=== PATIENT | male | born 1960 | race Caucasian/White ===

== ENCOUNTER 2024-01-28 02:31 | Observation (INO) ==
--- NOTE | 2024-01-28 02:51 | Emergency Department Note ---
Impression & Plan Kidney stone on left side, DEUCE (acute kidney injury) ED Provider Note CHIEF COMPLAINT: Kidney stone HISTORY OF PRESENTING ILLNESS: This 63-year-old male patient presents to the emergency department for evaluation of left-sided flank pain, nausea, vomiting, and shaking since 8:30 pm tonight. The patient has a history of kidney stones and the pain feels the same. However, he thinks he was able to pass the first 2 stones without problems. However, this stone is not passing on its own. He has been taking Flomax and Vicodin at home without improvement of the symptoms. Last took Flomax and Vicodin at 8:45 PM. He rates his discomfort as sharp and 10/10. No fevers. Has been having trouble urinating since the pain started. Denies blood in his urine. Denies testicular pain. Denies any chest pain or SOB. Upon review of the patient's medical records, he was seen in the ER on 12/19/2023 and diagnosed with a 7 x 4 mm kidney stone. The patient had taken Flomax and Vicodin with resolution of the pain from that kidney stone and he thought that he passed the stone, but never found the stone. The patient then followed up with urology on 12/29/2023 and had KUB ordered to evaluate location of the stone. KUB on 01/26/2024 showed a 7 mm left pelvic basin calcification which may represent distal migration of the previous noted left ureteral calculus. REVIEW OF SYSTEMS: See HPI for pertinent positives and pertinent negatives. ALLERGIES: Ibuprofen, sulfa, amoxicillin MEDICATIONS: None PAST MEDICAL HISTORY: Kidney stones. History of vasectomy, T&A, skin cancer surgery. PHYSICAL EXAM: VITALS: Vitals are noted on the nurse's note and reviewed by myself. GENERAL: The patient is pacing the room in pain. However, he is non toxic and non-diaphoretic. SKIN: Capillary refill <2 sec. EYES: PERRLA. EOMI. Conjunctivae without injection, sclerae without icterus. NOSE: Patent without discharge. MOUTH: Mucous membranes moist. Uvula midline. Airway patent. NECK: Supple without nuchal rigidity. HEART: Regular rate and rhythm without murmurs gallops or rubs. LUNGS: Clear to auscultation bilaterally without wheezes, rales or rhonchi. No retractions or accessory muscle use. ABDOMEN: Positive bowel sounds x 4. Normal tympanic percussion. Soft, tender to palpation over the left flank, but no CVA tenderness. No masses or organomegaly. Collins sign negative. No guarding or rebound tenderness. No focal RLQ or LLQ tenderness. MUSCULOSKELETAL: No gross musculoskeletal defects. NEURO: Patient was alert and oriented. No focal neurological deficits. DIFFERENTIAL DIAGNOSIS: Differential diagnosis includes hepatitis, pancreatitis, cholecystitis, cholelithiasis, appendicitis, kidney stone, pyelonephritis, UTI, gastritis, gastroenteritis, mesenteric adenitis, obstruction, constipation, hernia, abdominal abscess, perforation, diverticulitis, IBD, ischemic colitis, abdominal aortic aneurysm, testicular torsion, prostatitis, or others. ED COURSE AND MEDICAL DECISION MAKING: MEDICATIONS GIVEN: 1 L normal saline solution bolus. Morphine 4 mg IV, Zofran 4 mg IV, Dilaudid 0.5 mg IV, and Tylenol 1000 mg IV. INTERPRETATION OF LABS: I interpreted the labs with full lab results as below in the lab section of this note. White blood cell count elevated at 15.94. Hemoglobin normal at 14.8. Platelet count normal at 206. BUN elevated 26 and creatinine elevated at 1.47. Glucose 119. CMP otherwise normal. Lipase normal. Urinalysis with 2+ blood, 1+ protein, 1+ glucose, uric acid crystals, but no evidence for UTI. INTERPRETATION OF IMAGING: Imaging studies were interpreted by myself and read by radiology as per the imaging section of this note. CT scan of the abdomen pelvis without contrast showed increased left perinephritic stranding, hydronephrosis, and diffuse hydroureter to the level of the obstructing 4.4 x 8 mm calculus now with a left ureteral vesicular junction. EXTERNAL RECORDS REVIEWED: I reviewed the patient's previous ER visits, urology visit notes, and previous imaging studies as summarized above. CONSULTATIONS: Mainor Simpson PA-C of urology. On-call hospitalist. MDM SUMMARY: I examined the patient. The patient was first diagnosed with a kidney stone on 12/19/2023 in the ER. The patient felt like he passed the stone because his pain resolved. However, he never found the stone in his urine. The patient then thought that he had another stone when he saw urology towards the end of December. His pain then resolved until last night so he thought he passed that stone as well. He started with pain again tonight and feels that he has a new stone. However, upon review of the patient's records I suspect that the patient's symptoms are all stemming from the same kidney stone that has never passed, but has been intermittently asymptomatic based on its location. An IV lock was placed and labs were drawn. The patient was given 1 L normal saline solution bolus. The patient already took a dose of Flomax at 8:45 PM tonight so he was not given another dose of Flomax. He is allergic to ibuprofen so he was not given Toradol. He was medicated with IV morphine, IV Dilaudid, and IV Tylenol along with IV Zofran with improvement of his symptoms, but continued pain. Laboratory studies showed a stable leukocytosis, but new elevation in his BUN and creatinine. Urinalysis negative for UTI. CT scan of the abdomen pelvis showed increased left perinephritic stranding, hydronephrosis, and diffuse hydroureter to the level of the obstructing 4.4 x 8 mm calculus now with a left ureteral vesicular junction. I spoke with Mainor Simpson PA-C of urology who recommended the patient be admitted by medicine due to the size of the kidney stone, continued symptoms, and new changes on his laboratory studies and CT scan. The patient does not appear to have an infected stone at this time. I spoke with the on-call hospitalist who agreed to admit the patient for further management. Please refer to their dictation for further details. The patient's care was transferred in stable condition. DIAGNOSIS: Left ureteral stone Acute kidney injury Past Med/Surg History Medical History (Updated 01/28/24 @ 08:09 by Lizbeth Obrien PA-C) Kidney stone on left side Surgical History (Updated 01/28/24 @ 06:34 by Zaida Rosenberg DO) History of tonsillectomy History of vasectomy Social History (Updated 01/28/24 @ 06:34 by Zaida Rosenberg DO) Smoking Status: Never smoker Hx Alcohol Use: Yes Alcohol type: wine Hx Substance Use: No Preferred Language: Slovak Feels Safe at Home: Yes Allergies Allergies Allergy/AdvReac Type Severity Reaction Status Date / Time ibuprofen [From Advil] Allergy Hives Verified 12/24/23 08:48 Sulfa (Sulfonamide Allergy Hives Verified 12/24/23 08:48 Antibiotics) amoxicillin AdvReac Mild Uncoded 12/24/23 08:48 Home Meds Previous Rx's Medication Instructions Recorded hydrocodone 5 mg-acetaminophen 325 1 tab PO Q6H PRN pain #14 tabs 12/19/23 mg tablet tamsulosin 0.4 mg capsule (Flomax) 0.4 mg PO DAILY #7 caps 12/19/23 tamsulosin 0.4 mg capsule 0.4 mg PO DAILY #30 caps 12/29/23 Results & Data (ED) Vital Signs Vital Signs - 24 hr 01/28/24 02:37 01/28/24 03:53 01/28/24 04:18 Temperature 36.7 C Temperature Source Temporal Artery Scan Pulse Rate 88 Pulse Rate [Finger] 85 Respiratory Rate 20 18 Respiratory Effort / Characteristics Non-Labored Spontaneous Non-Labored Spontaneous Respiratory Depth Normal Normal Respiratory Pattern Regular Blood Pressure 151/90 H Blood Pressure [Left Arm] 132/75 Blood Pressure Mean 110 Blood Pressure Mean [Left Arm] 94 Pulse Oximetry 96 97 96 Oxygen Delivery Method Room Air Room Air Room Air Oxygen Flow Rate Sepsis Recent Fever Within 48 Hours No Sepsis New/Unexplained Change in Mental Status No Sepsis Action Taken by Nursing No Action Required 01/28/24 05:00 01/28/24 06:00 Temperature Temperature Source Pulse Rate Pulse Rate [Finger] 87 73 Respiratory Rate 14 15 Respiratory Effort / Characteristics Respiratory Depth Respiratory Pattern Blood Pressure Blood Pressure [Left Arm] 142/76 H 128/84 Blood Pressure Mean Blood Pressure Mean [Left Arm] 98 98 Pulse Oximetry 95 98 Oxygen Delivery Method Nasal Cannula Nasal Cannula Oxygen Flow Rate 2 2 Sepsis Recent Fever Within 48 Hours Sepsis New/Unexplained Change in Mental Status Sepsis Action Taken by Nursing Laboratory Data 01/28/24 03:19 01/28/24 03:19 Lab Results 01/28/24 01/28/24 Range/Units 03:11 03:19 WBC 15.94 H (4.8-10.8) K/ul RBC 4.58 L (4.70-6.10) M/uL Hgb 14.8 (14.0-18.0) g/dl Hct 43.7 (42.0-52.0) % MCV 95.4 (80.0-100.0) fL MCH 32.3 (25.0-34.0) pg MCHC 33.9 (32.0-36.0) g/dL RDW Std Deviation 41.1 (36.4-46.3) fL RDW Coeff of Zeynep 11.9 (11.5-14.5) % Plt Count 206 (130-400) K/uL MPV 11.0 (9.4-12.4) fL Immature Gran % (Auto) 0.8 % Neut % (Auto) 88.3 % Lymph % (Auto) 4.7 % [place] % (Auto) 5.8 % Eos % (Auto) 0.1 % Baso % (Auto) 0.3 % Neut # (Auto) 14.07 H (1.40-6.50) K/uL Lymph # (Auto) 0.75 L (1.20-3.40) K/uL [place] # (Auto) 0.93 H (0.11-0.59) K/uL Eos # (Auto) 0.02 (0.00-0.50) K/uL Baso # (Auto) 0.04 (0.00-0.20) K/uL Immature Gran # (Auto) 0.13 (0.01-0.20) K/uL Sodium 137 (136-145) mmol/L Potassium 4.0 (3.5-5.1) mmol/L Chloride 101 (98-107) mmol/L Carbon Dioxide 27 (21-32) mmol/L Anion Gap 9 (3-11) BUN 26 H (6-23) mg/dl Creatinine 1.47 H (0.6-1.4) mg/dl Est Cr Clr Drug Dosing 49.8 ml/min Est GFR ( Amer) 58.0 ml/min Est GFR (Non-Af Amer) 50.1 ml/min BUN/Creatinine Ratio 17.7 (10-20) Glucose 119 H (70-99(Fasting)) mg/dl Calcium 9.5 (8.6-10.3) mg/dl Total Bilirubin 0.9 (0.2-1.0) mg/dl AST 22 (13-39) U/L ALT 22 (7-52) U/L Alkaline Phosphatase 65 (34-104) U/L Total Protein 7.7 (6.0-8.3) gm/dl Albumin 4.7 (3.4-5.0) gm/dl Globulin 3.0 (2.5-4.0) gm/dl Albumin/Globulin Ratio 1.6 (0.9-2) Lipase 21 (11-82) U/L Urine Color Yellow Urine Appearance Clear (Clear) Urine pH 5.0 (4.5-7.5) Ur Specific [place] 1.027 (1.000-1.030) Urine Protein 1+ H (Negative) Urine Glucose (UA) 1+ H (Negative) Urine Ketones Negative (Negative) Urine Blood 2+ H (Negative) Urine Nitrite Negative (Negative) Urine Bilirubin Negative (Negative) Urine Urobilinogen Negative (Negative) Ur Leukocyte Esterase Negative (Negative) Urine WBC (Auto) 0-5 (0-5) /hpf Urine RBC (Auto) >20 H (0-2) /hpf U Hyaline Cast (Auto) 0-2 (0-2) /lpf U Epithel Cells (Auto) 6-10 H (0-2) /hpf Urine Bacteria (Auto) None Seen (None Seen) Uric Acid Crystals Present A (None Prsent) Urine Mucus Present A (None Prsent) Administered Medications Discontinued Medications Hydromorphone HCl (Hydromorphone Inj 0.5 Mg/0.5 Ml Syr) 0.5 mg IV NOW STA Stop: 01/28/24 03:57 Last Admin: 01/28/24 04:17 Dose: 0.5 mg Documented By: BELEN Sodium Chloride (Nss) 1,000 mls @ 999 mls/hr IV .Q1H1M STA Stop: 01/28/24 03:56 Last Infusion: 01/28/24 04:27 Dose: Infused Documented By: Admin: 01/28/24 03:23 Dose: 999 mls/hr Documented By: FREDDIE Acetaminophen (Ofirmev) 1,000 mg in 100 mls @ 400 mls/hr IV NOW STA Stop: 01/28/24 06:00 Last Infusion: 01/28/24 06:47 Dose: Infused Documented By: Admin: 01/28/24 06:04 Dose: 400 mls/hr Documented By: DONNA Morphine Sulfate (Morphine Sulfate 4 Mg/Ml 1 Ml Carp\Vial) 4 mg IV NOW STA Stop: 01/28/24 02:57 Last Admin: 01/28/24 03:23 Dose: 4 mg Documented By: FREDDIE Ondansetron HCl (Ondansetron Inj 2 Mg/Ml 2 Ml Vial) 4 mg IV NOW STA Stop: 01/28/24 02:57 Last Admin: 01/28/24 03:23 Dose: 4 mg Documented By: [facility] Imaging Data Radiologist's Impression: Abdomen/Pelvis CT 01/28/24 02:58 Exam(s): CT ABDOMEN + PELVIS Without Contrast EXAM: CT Abdomen and Pelvis Without Intravenous Contrast CLINICAL HISTORY: Reason for exam: Left flank pain - eval stone. TECHNIQUE: Axial computed tomography images of the abdomen and pelvis without intravenous contrast. CTDI is 18.55 mGy and DLP is 940.31 mGy-cm. Automated exposure control was utilized for the study. A dose lowering technique was utilized adhering to the principles of ALARA. COMPARISON: 12/19/2023. FINDINGS: Lung bases: Bibasilar atelectasis. ABDOMEN: Liver: Scattered subcentimeter hypodense lesions too small to characterize. Gallbladder and bile ducts: Unremarkable. No calcified stones. No ductal dilation. Pancreas: Previously demonstrated hypodense lesion in the uncinate process of the pancreas is not visualized on this limited non-contrast study. No ductal dilation. Spleen: Unremarkable. No splenomegaly. Adrenals: Unremarkable. No mass. Kidneys and ureters: Increased left perinephric stranding, hydronephrosis and diffuse hydroureter to the level of an obstructing 4.4 x 8 mm calculus now at the left ureteral vesicular junction. No other renal or ureteral calculus. Right kidney is unchanged. Redemonstrated 2 cm hyperdense left renal cyst versus mass. Stomach and bowel: No obstruction or ileus. No evidence for diverticulitis. PELVIS: Appendix: No findings to suggest acute appendicitis. Bladder: Partially contracted. Calculus at the left ureterovesicular junction as noted above. No stones. Reproductive: Prominent prostate gland. ABDOMEN and PELVIS: Intraperitoneal space: No free air. No free fluid. Bones/joints: No acute fracture. Soft tissues: Unremarkable. Vasculature: Unremarkable. No abdominal aortic aneurysm. Lymph nodes: Unremarkable. No enlarged lymph nodes. IMPRESSION: Increased left perinephric stranding, hydronephrosis and diffuse hydroureter to the level of an obstructing 4.4 x 8 mm calculus now at the left ureteral vesicular junction. Otherwise no change. Electronically signed by: David Henriquez M.D. 01/28/24 04:53 AM Discharge Plan Visit Data Chief Complaint: Kidney Stone Stated Complaint: UNCONTROLLED KIDNEY STONE PAIN ED Provider: Sintia Saldaña ED Midlevel Provider: Lizbeth Obrien Discharge Problem: Kidney stone on left side, DEUCE (acute kidney injury) Patient Disposition: Admitted As Inpatient Condition: Good
[2024-01-28] MEDS: SODIUM CHLORIDE 0.9% 1,000 ML IV STA (03:23)
[2024-01-28] MEDS: MoRPHine SULFATE 4 MG/ML 1 ML CARP\\VIAL IV STA (03:23)
[2024-01-28] MEDS: ONDANSETRON INJ 2 MG/ML 2 ML VIAL IV STA (03:23)
[2024-01-28 03:46] LABS: Basophils # (auto) 0.04 K/uL (0.00-0.20); Basophils % (auto) 0.3 %; Eosinophils # (auto) 0.02 K/uL (0.00-0.50); Eosinophils % (auto) 0.1 %; Hematocrit (blood only) 43.7 % (42.0-52.0); Hemoglobin 14.8 g/dl (14.0-18.0); Immature Granulocytes # (auto) 0.13 K/uL (0.01-0.20); Immature Granulocytes % (auto) 0.8 %; Lymphocytes # (auto) 0.75 K/uL (1.20-3.40); Lymphocytes % (auto) 4.7 %; Mean Corpuscular Hemoglobin 32.3 pg (25.0-34.0); Mean Corpuscular Hgb Conc 33.9 g/dL (32.0-36.0); Mean Corpuscular Volume 95.4 fL (80.0-100.0); Monocytes # (auto) 0.93 K/uL (0.11-0.59); Monocytes % (auto) 5.8 %; Neutrophils # (auto) 14.07 K/uL (1.40-6.50); Neutrophils % (auto) 88.3 %; Platelet Count 206 K/uL (130-400); RDW Coefficient of Variation 11.9 % (11.5-14.5); RDW Standard Deviation 41.1 fL (36.4-46.3); Red Blood Count 4.58 M/uL (4.70-6.10); White Blood Count 15.94 K/ul (4.8-10.8)
[2024-01-28 04:01] LABS: Albumin Globulin Ratio 1.6 (0.9-2); Albumin Level 4.7 gm/dl (3.4-5.0); BUN Creatinine Ratio 17.7 (10-20); Bilirubin,Total 0.9 mg/dl (0.2-1.0); Calcium 9.5 mg/dl (8.6-10.3); Creatinine Clr Calc Pharmacy 49.8 ml/min; Est GFR (Non-African American) 50.1 ml/min; Total Protein 7.7 gm/dl (6.0-8.3)
[2024-01-28 04:12] LABS: Appearance Urine Clear (Clear); Bacteria Urine Automated None Seen (None Seen); Bilirubin Urine Negative (Negative); Blood Urine 2+ (Negative); Color Urine Yellow; Glucose Urine UA 1+ (Negative); Ketones Urine Negative (Negative); Leukocyte Esterase Urine Negative (Negative); Nitrite Urine Negative (Negative); Protein Urine 1+ (Negative); RBC Urine Automated >20 /hpf (0-2); Specific Gravity Urine 1.027 (1.000-1.030); Urobilinogen Urine Negative (Negative); WBC Urine Automated 0-5 /hpf (0-5)
[2024-01-28] MEDS: HYDROmorphone INJ 0.5 MG/0.5 ML SYR IV STA (04:17)
[2024-01-28 04:26] LABS: Mucus Urine Present (None Prsent); Uric Acid Crystals Urine Present (None Prsent)
[2024-01-28 04:27] LABS: Cast Urine Automated 0-2 /lpf (0-2)
--- NOTE | 2024-01-28 04:53 | CT Scan Report ---
Exam(s): CT ABDOMEN + PELVIS Without Contrast EXAM: CT Abdomen and Pelvis Without Intravenous Contrast CLINICAL HISTORY: Reason for exam: Left flank pain - eval stone. TECHNIQUE: Axial computed tomography images of the abdomen and pelvis without intravenous contrast. CTDI is 18.55 mGy and DLP is 940.31 mGy-cm. Automated exposure control was utilized for the study. A dose lowering technique was utilized adhering to the principles of ALARA. COMPARISON: 12/19/2023. FINDINGS: Lung bases: Bibasilar atelectasis. ABDOMEN: Liver: Scattered subcentimeter hypodense lesions too small to characterize. Gallbladder and bile ducts: Unremarkable. No calcified stones. No ductal dilation. Pancreas: Previously demonstrated hypodense lesion in the uncinate process of the pancreas is not visualized on this limited non-contrast study. No ductal dilation. Spleen: Unremarkable. No splenomegaly. Adrenals: Unremarkable. No mass. Kidneys and ureters: Increased left perinephric stranding, hydronephrosis and diffuse hydroureter to the level of an obstructing 4.4 x 8 mm calculus now at the left ureteral vesicular junction. No other renal or ureteral calculus. Right kidney is unchanged. Redemonstrated 2 cm hyperdense left renal cyst versus mass. Stomach and bowel: No obstruction or ileus. No evidence for diverticulitis. PELVIS: Appendix: No findings to suggest acute appendicitis. Bladder: Partially contracted. Calculus at the left ureterovesicular junction as noted above. No stones. Reproductive: Prominent prostate gland. ABDOMEN and PELVIS: Intraperitoneal space: No free air. No free fluid. Bones/joints: No acute fracture. Soft tissues: Unremarkable. Vasculature: Unremarkable. No abdominal aortic aneurysm. Lymph nodes: Unremarkable. No enlarged lymph nodes. IMPRESSION: Increased left perinephric stranding, hydronephrosis and diffuse hydroureter to the level of an obstructing 4.4 x 8 mm calculus now at the left ureteral vesicular junction. Otherwise no change. Electronically signed by: David Henriquez M.D. 01/28/24 04:53 AM
--- NOTE | 2024-01-28 05:43 | Urology Consultation ---
Date of Consultation January 28, 2024 Assessment & Plan (1) Kidney stone on left side: I discussed with the treating clinician in the emergency department the patient is being admitted on the hospitalist service. From a urologic perspective we recommend the following: Provide analgesics Provide antiemetics The patient takes Flomax and this should be continued for expulsive therapy Provide IV fluid for hydration Keep patient n.p.o. for the present time At the present time the patient is noted to be normotensive without tachycardia or fever. He does have leukocytosis and this was present at the onset of his kidney stone problems in December. At the present time the patient also has a slight increase of his creatinine. He does not appear to be septic. Due to the size of patient's kidney stone elevated creatinine however, I feel the patient may benefit from cystoscopy. He will be evaluated by our dayshift team upon their arrival this morning and the determination will be made if patient requires cystoscopy Additional recommendations will be forthcoming based on his clinical course as it unfolds History of Present Illness Reason for Consultation: Nephrolithiasis History of Present Illness This is a 63-year-old male who presented to the emergency department secondary to issues with a kidney stone. The patient notes that he has never had any kidney stones before December of this year. He was seen in the emergency department on 12/19/2023 secondary to a kidney stone. At that time the patient had a CT scan of the abdomen pelvis that showed he had a 7 x 4 mm obstructing kidney stone in the mid left ureter. This CAT scan also demonstrated a possible 6 mm lesion in the uncinate process of the pancreas. He was also noted to have a 1.9 cm hypodense lesion of the right kidney. At that time he had a CBC her white blood cell count was elevated at 15.2. Hemoglobin and hematocrit along with a platelet count were normal. Chemistry profile at that time showed sodium and potassium were normal. His creatinine was also not elevated at that time. Urinalysis was not indicative of infection. The patient has since followed up with Dr. Chao of [facility] urology on December 28 of this year. At that time his pain had resolved and there were was a question of whether or not the patient had passed his kidney stone. Because of the above-noted CT scan findings the patient did undergo an MRI of his abdomen. This showed that he had a 1.8 cm right renal lesion with 6- month follow-up imaging recommended. The patient represented to the emergency department this evening secondary to worsening left flank pain. The patient did have occasional chills but denies any fevers. He notes that his left flank pain radiates to the front of his abdomen. He has had associated nausea and vomiting. He denies any dysuria hematuria and does admit he has been having some difficulty urinating. As noted the patient notes that prior to December of this year he has never had any issues with kidney stones in the past. Since arrival to the hospital patient has had labs and imaging which independent reviewed. A CT scan of the abdomen pelvis showed the patient had perinephric stranding and hydronephrosis secondary to a 4.4 x 8 mm kidney stone located at the left ureterovesical junction. Labs included a CBC white blood cell count was elevated at 15.9. Hemoglobin and hematocrit along with a platelet count were normal. Chemistry profile showed sodium and potassium are normal. The patient had a elevated BUN/creatinine at 26 and 1.4. Urinalysis was negative for nitrites and leukocyte esterase. There is also no pyuria and no bacteria on the study. At the time of my interview the patient was resting comfortably bed and he was in no distress. Allergies Allergy/AdvReac Type Severity Reaction Status Date / Time ibuprofen [From Advil] Allergy Hives Verified 12/24/23 08:48 Sulfa (Sulfonamide Allergy Hives Verified 12/24/23 08:48 Antibiotics) amoxicillin AdvReac Mild Uncoded 12/24/23 08:48 Home Medications Medication Instructions Recorded Confirmed Type hydrocodone 5 mg-acetaminophen 325 1 tab PO Q6H PRN pain #14 tabs 12/19/23 12/24/23 Rx mg tablet tamsulosin 0.4 mg capsule (Flomax) 0.4 mg PO DAILY #7 caps 12/19/23 12/24/23 Rx tamsulosin 0.4 mg capsule 0.4 mg PO DAILY #30 caps 12/29/23 12/29/23 Rx Patient History Social History Smoking Status: Never smoker Preferred Language: German Feels Safe at Home: Yes Review of Systems Constitutional: + chills; no fever Eyes: + corrective lenses Ear, Nose, Mouth, Throat: no ear pain Respiratory: no cough and no dyspnea Cardiovascular: no chest pain Gastrointestinal: + abdominal pain (Radiating from left fl ank), + nausea and + vomiting Genitourinary: + as per Subjective / HPI Musculoskeletal: no back pain Integumentary: no rash Neurologic: no localized weakness Physical Exam Constitutional: WD/WN, vitals as above Eyes: Wears glasses ENMT: Ears: no hearing impairment and no external ear abnormality Mouth: no oropharynx abnormality Neck: trachea midline Respiratory: normal respiratory effort; no respiratory distress and no labored breathing Cardiovascular: Rate/Rhythm: regular rate and regular rhythm Gastrointestinal (Abdomen): Abdomen is soft with mild distention. At the time of my exam there are no signs of peritonitis, no rebound tenderness or guarding, and no pain with palpation Musculoskeletal: No calf tenderness Skin: no rashes Neurologic: moves all extremities Psychiatric: A+Ox3, euthymic affect Genitourinary: No CVA tenderness with percussion Results & Data Vital Signs (Past 12 Hours) Vital Signs Temp Pulse Pulse Resp BP BP Pulse Ox 01/28/24 05:00 87 14 142/76 H 95 01/28/24 04:18 96 01/28/24 03:53 85 18 132/75 97 01/28/24 02:37 36.7 C 88 20 151/90 H 96 O2 Del Method O2 Flow Rate 01/28/24 05:00 Nasal Cannula 2 01/28/24 04:18 Room Air 01/28/24 03:53 Room Air 01/28/24 02:37 Room Air PG Care Time/CCT Total # of Minutes Spent Total Time Spent with Patient: Total time spent is greater than 50% in coordination of care (as documented) at patient's floor/unit and/or counseling patient: Coding Level of Care Code 16473 IN/OBS CONSULT LVL 5,80M Diagnoses Kidney stone on left side N20.0
[2024-01-28] MEDS: ACETAMINOPHEN 1,000 MG/100 ML VIAL IV STA (06:04)
--- NOTE | 2024-01-28 06:08 | History & Physical Report ---
Date of Service January 28, 2024 Assessment & Plan (1) Kidney stone on left side: Plan: 63yo male presenting with left flank pain, nausea and vomiting. Found to have a large obstructing calculus 4.4 x 8mm at the left ureteral vesicular junction with increased perinephric stranding and hydronephrosis and diffuse hydroureter. UA does not appear to be infected although patient does have an elevated WBC count -Admit to medical -Tylenol and Morphine PRN pain -Zofran PRN nausea -Continue Flomax 0.4mg po daily -Continue IVF - LR at 125mL/hr - 2L ordered -Will keep patient NPO for now -Urology consultation appreciated -UA with uric acid crystals present - possible stone composition - would benefit from stone studies ?urine alkalinization (2) DEUCE (acute kidney injury): Plan: Elevation of BUN and Cr from baseline ( 25-->26 and 1.18 --> 1.47, respectively). -Monitor UOP -IVF as above -Repeat chemistry in AM -Avoid nephrotoxic agents. Renal dosing where needed (3) Kidney cysts: Plan: Patient had an MRI of the abdomen performed 01/26/24 to monitor renal cyst - noted to have a 1.8cm right renal lesion demonstrating restricted diffusion with equivocol enhancement. 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 Patient should have followup imaging and ongoing surveillance, possible referral for EUS History of Present Illness Chief Complaint: left flank pain Primary Care Provider: DO Collin Martines Kodak is a pleasant 63yo male with history of renal stones - fairly new onset with first incident being in December 2023. He had a known stone on the left with intermittent pain. Was seen by Urology and had been on Flomax. Pain did improve so he thought the stone had passed. Today he developed left flank pain with radiation into the anterior abdomen, abdominal and rectal pressure earlier today. Also with nausea, vomiting and chills. Some decreased urination. NO report of fever, chest pain, cough or SOB ER Course: Tylenol MOrphine NSS Allergies Allergy/AdvReac Type Severity Reaction Status Date / Time ibuprofen [From Advil] Allergy Hives Verified 12/24/23 08:48 Sulfa (Sulfonamide Allergy Hives Verified 12/24/23 08:48 Antibiotics) amoxicillin AdvReac Mild Uncoded 12/24/23 08:48 Home Medications Medication Instructions Recorded Confirmed Type hydrocodone 5 mg-acetaminophen 325 1 tab PO Q6H PRN pain #14 tabs 12/19/23 12/24/23 Rx mg tablet tamsulosin 0.4 mg capsule (Flomax) 0.4 mg PO DAILY #7 caps 12/19/23 12/24/23 Rx tamsulosin 0.4 mg capsule 0.4 mg PO DAILY #30 caps 12/29/23 12/29/23 Rx Past Med/Surg History Medical History (Updated 01/28/24 @ 06:36 by Zaida Rosenberg DO) Kidney stone on left side Surgical History (Updated 01/28/24 @ 06:34 by Zaida Rosenberg DO) History of tonsillectomy History of vasectomy Social History (Updated 01/28/24 @ 06:34 by Zaida Rosenberg DO) Smoking Status: Never smoker Hx Alcohol Use: Yes Alcohol type: wine Hx Substance Use: No Preferred Language: [place] Irish Feels Safe at Home: Yes Review of Systems Review of Systems: All systems reviewed & are unremarkable except as noted in HPI & below Physical Exam Physical Exam: General: patient resting comfortably, NAD, non-toxic in appearance, AA&O x 4 Skin: warm, dry, intact, no rashes or lesions HEENT: NC/AT, PERRL, EOMI, anicteric sclera, conjunctiva without injection, external ear normal to inspection and nontender, nares patent, moist mucus membranes, dentition intact, no oropharyngeal lesions, neck supple, trachea midline, no LAD, no thyromegaly, no JVD Heart: +S1/S2, regular, no m/r/g Lungs: equal air entry bilaterally, no rales/rhonchi/wheezes Abd: +BS, soft, NT/ND, no masses/organomegaly/ascites, left flank tenderness Ext: warm, 2+ pulses in UE/LE bilaterally, no clubbing/cyanosis or edema Neuro: nonfocal, patient AA&O x 4, speech intact, no facial droop, moving all extremities on command with equal strength 5/5 Results & Data Results & Data Vital Signs (Past 12 Hours) Vital Signs Temp Pulse Pulse Resp BP BP Pulse Ox 01/28/24 06:00 73 15 128/84 98 04/24/24 05:00 87 14 142/76 H 95 01/28/24 04:18 96 01/28/24 03:53 85 18 132/75 97 01/28/24 02:37 36.7 C 88 20 151/90 H 96 O2 Del Method O2 Flow Rate 01/28/24 06:00 Nasal Cannula 2 01/28/24 05:00 Nasal Cannula 2 01/28/24 04:18 Room Air 01/28/24 03:53 Room Air 01/28/24 02:37 Room Air Laboratory Results Laboratory Results WBC 15.94 K/ul (4.8-10.8) H 01/28/24 03:19 RBC 4.58 M/uL (4.70-6.10) L 01/28/24 03:19 Hgb 14.8 g/dl (14.0-18.0) 01/28/24 03:19 Hct 43.7 % (42.0-52.0) 01/28/24 03:19 MCV 95.4 fL (80.0-100.0) 01/28/24 03:19 MCH 32.3 pg (25.0-34.0) 01/28/24 03:19 MCHC 33.9 g/dL (32.0-36.0) 01/28/24 03:19 RDW Std Deviation 41.1 fL (36.4-46.3) 01/28/24 03:19 RDW Coeff of Zeynep 11.9 % (11.5-14.5) 01/28/24 03:19 Plt Count 206 K/uL (130-400) 01/28/24 03:19 MPV 11.0 fL (9.4-12.4) 01/28/24 03:19 Immature Gran % (Auto) 0.8 % 01/28/24 03:19 Neut % (Auto) 88.3 % 01/28/24 03:19 Lymph % (Auto) 4.7 % 01/28/24 03:19 [place] % (Auto) 5.8 % 01/28/24 03:19 Eos % (Auto) 0.1 % 01/28/24 03:19 Baso % (Auto) 0.3 % 01/28/24 03:19 Neut # (Auto) 14.07 K/uL (1.40-6.50) H 01/28/24 03:19 Lymph # (Auto) 0.75 K/uL (1.20-3.40) L 01/28/24 03:19 [place] # (Auto) 0.93 K/uL (0.11-0.59) H 01/28/24 03:19 Eos # (Auto) 0.02 K/uL (0.00-0.50) 01/28/24 03:19 Baso # (Auto) 0.04 K/uL (0.00-0.20) 01/28/24 03:19 Immature Gran # (Auto) 0.13 K/uL (0.01-0.20) 01/28/24 03:19 Sodium 137 mmol/L (136-145) 01/28/24 03:19 Potassium 4.0 mmol/L (3.5-5.1) 01/28/24 03:19 Chloride 101 mmol/L (98-107) 01/28/24 03:19 Carbon Dioxide 27 mmol/L (21-32) 01/28/24 03:19 Anion Gap 9 (3-11) 01/28/24 03:19 BUN 26 mg/dl (6-23) H 01/28/24 03:19 Creatinine 1.47 mg/dl (0.6-1.4) H 01/28/24 03:19 Est Cr Clr Drug Dosing 49.8 ml/min 01/28/24 03:19 Est GFR ( Amer) 58.0 ml/min 01/28/24 03:19 Est GFR (Non-Af Amer) 50.1 ml/min 01/28/24 03:19 BUN/Creatinine Ratio 17.7 (10-20) 01/28/24 03:19 Glucose 119 mg/dl (70-99(Fasting)) H 01/28/24 03:19 Calcium 9.5 mg/dl (8.6-10.3) 01/28/24 03:19 Total Bilirubin 0.9 mg/dl (0.2-1.0) 01/28/24 03:19 AST 22 U/L (13-39) 01/28/24 03:19 ALT 22 U/L (7-52) 01/28/24 03:19 Alkaline Phosphatase 65 U/L (34-104) 01/28/24 03:19 Total Protein 7.7 gm/dl (6.0-8.3) 01/28/24 03:19 Albumin 4.7 gm/dl (3.4-5.0) 01/28/24 03:19 Globulin 3.0 gm/dl (2.5-4.0) 01/28/24 03:19 Albumin/Globulin Ratio 1.6 (0.9-2) 01/28/24 03:19 Lipase 21 U/L (11-82) 01/28/24 03:19 Urine Color Yellow 01/28/24 03:11 Urine Appearance Clear (Clear) 01/28/24 03:11 Urine pH 5.0 (4.5-7.5) 01/28/24 03:11 Ur Specific [place] 1.027 (1.000-1.030) 01/28/24 03:11 Urine Protein 1+ (Negative) H 01/28/24 03:11 Urine Glucose (UA) 1+ (Negative) H 01/28/24 03:11 Urine Ketones Negative (Negative) 01/28/24 03:11 Urine Blood 2+ (Negative) H 01/28/24 03:11 Urine Nitrite Negative (Negative) 01/28/24 03:11 Urine Bilirubin Negative (Negative) 01/28/24 03:11 Urine Urobilinogen Negative (Negative) 01/28/24 03:11 Ur Leukocyte Esterase Negative (Negative) 01/28/24 03:11 Urine WBC (Auto) 0-5 /hpf (0-5) 01/28/24 03:11 Urine RBC (Auto) >20 /hpf (0-2) H 01/28/24 03:11 U Hyaline Cast (Auto) 0-2 /lpf (0-2) 01/28/24 03:11 U Epithel Cells (Auto) 6-10 /hpf (0-2) H 01/28/24 03:11 Urine Bacteria (Auto) None Seen (None Seen) 01/28/24 03:11 Uric Acid Crystals Present (None Prsent) A 01/28/24 03:11 Urine Mucus Present (None Prsent) A 01/28/24 03:11 Impressions Abdomen/Pelvis CT 01/28/24 02:58 Exam(s): CT ABDOMEN + PELVIS Without Contrast EXAM: CT Abdomen and Pelvis Without Intravenous Contrast CLINICAL HISTORY: Reason for exam: Left flank pain - eval stone. TECHNIQUE: Axial computed tomography images of the abdomen and pelvis without intravenous contrast. CTDI is 18.55 mGy and DLP is 940.31 mGy-cm. Automated exposure control was utilized for the study. A dose lowering technique was utilized adhering to the principles of ALARA. COMPARISON: 12/19/2023. FINDINGS: Lung bases: Bibasilar atelectasis. ABDOMEN: Liver: Scattered subcentimeter hypodense lesions too small to characterize. Gallbladder and bile ducts: Unremarkable. No calcified stones. No ductal dilation. Pancreas: Previously demonstrated hypodense lesion in the uncinate process of the pancreas is not visualized on this limited non-contrast study. No ductal dilation. Spleen: Unremarkable. No splenomegaly. Adrenals: Unremarkable. No mass. Kidneys and ureters: Increased left perinephric stranding, hydronephrosis and diffuse hydroureter to the level of an obstructing 4.4 x 8 mm calculus now at the left ureteral vesicular junction. No other renal or ureteral calculus. Right kidney is unchanged. Redemonstrated 2 cm hyperdense left renal cyst versus mass. Stomach and bowel: No obstruction or ileus. No evidence for diverticulitis. PELVIS: Appendix: No findings to suggest acute appendicitis. Bladder: Partially contracted. Calculus at the left ureterovesicular junction as noted above. No stones. Reproductive: Prominent prostate gland. ABDOMEN and PELVIS: Intraperitoneal space: No free air. No free fluid. Bones/joints: No acute fracture. Soft tissues: Unremarkable. Vasculature: Unremarkable. No abdominal aortic aneurysm. Lymph nodes: Unremarkable. No enlarged lymph nodes. IMPRESSION: Increased left perinephric stranding, hydronephrosis and diffuse hydroureter to the level of an obstructing 4.4 x 8 mm calculus now at the left ureteral vesicular junction. Otherwise no change. Electronically signed by: David Henriquez M.D. 01/28/24 04:53 AM PG Care Time/CCT Total # of Minutes Spent Total Time Spent with Patient: Total time spent is greater than 50% in coordination of care (as documented) at patient's floor/unit and/or counseling patient: Coding Level of Care Code 06272 INT INP/OBS CARE 2/55MIN Diagnoses Kidney stone on left side N20.0 DEUCE (acute kidney injury) N17.9 Kidney cysts N28.1 Lesion of pancreas K86.9
[2024-01-28] MEDS ORDERED: MoRPHine SULFATE 2 MG/ML CARP IV PRN (08:19)
[2024-01-28] MEDS ORDERED: ACETAMINOPHEN 325 MG TAB PO PRN (08:19)
[2024-01-28] MEDS ORDERED: DOCUSATE SODIUM 100 MG CAP PO PRN (08:19)
[2024-01-28] MEDS: LACTATED RINGER'S 1,000 ML IV SCH (08:30)
--- NOTE | 2024-01-28 08:31 | Urology Progress Note ---
Date of Service January 28, 2024 Assessment & Plan (1) Left ureteral stone: Plan: 63 yo/M admitted for left renal colic secondary to an obstructing left ureteral stone. Pt afebrile with stable vitals Labs reviewed - creatinine 1.47, WBC 15.94 UA showed no bacteria, LE or pyuria This is patient's 2nd hospital presentation regarding left ureteral stone We discussed options for stone management including left ureteral stent placement today vs outpatient stone treatment if pain is controlled Reviewed ureteral stents in detail He would like to proceed with stent placement today Discussed stone treatment at a later date depending on findings Proceed to OR for cystoscopy, left retrograde pyelogram and left ureteral stent placement Risks and benefits to be reviewed with patient by Dr. Escobedo Will cover with Ancef prior to procedure Continue supportive care Keep NPO will follow Admission and Anticipated Discharge Date Admission Date: January 28, 2024 Supervising Physician Co-Signing Physician Notes Discussed patient with LIBBY. Agree with plan. Will attempt to treat stone. Consent obtained, patient marked Subjective Patient seen at bedside in the emergency department, at bedside Left flank pain improved since arrival No nausea/vomiting at present No fever or chills Voiding without difficulty, no dysuria or hematuria Currently NPO Review of Systems Constitutional: as per Subjective / HPI Gastrointestinal: as per Subjective / HPI Genitourinary: + as per Subjective / HPI Physical Exam Constitutional: well developed and well nourished; no acute distress Respiratory: normal respiratory effort; no respiratory distress and no labored breathing Gastrointestinal (Abdomen): Inspection/Auscultation: abdomen normal to inspection Musculoskeletal: Head/Neck/Chest: normocephalic Neurologic: moves all extremities and awake Psychiatric: Orientation: alert and oriented x 3 Results & Data Vital Signs (Past 12 Hours) Vital Signs Temp Pulse Pulse Resp BP BP Pulse Ox 01/28/24 07:59 84 18 117/75 97 01/28/24 06:00 73 15 128/84 98 01/28/24 05:00 87 14 142/76 H 95 01/28/24 04:18 96 01/28/24 03:53 85 18 132/75 97 01/28/24 02:37 36.7 C 88 20 151/90 H 96 O2 Del Method O2 Flow Rate 01/28/24 07:59 Room Air 01/28/24 06:00 Nasal Cannula 2 01/28/24 05:00 Nasal Cannula 2 01/28/24 04:18 Room Air 01/28/24 03:53 Room Air 01/28/24 02:37 Room Air PG Care Time/CCT Total # of Minutes Spent Total Time Spent with Patient: Total time spent is greater than 50% in coordination of care (as documented) at patient's floor/unit and/or counseling patient: Coding Level of Care Code 72620 SUB INP/OBS CARE 2/35MIN Diagnoses Left ureteral stone N20.1
[2024-01-28] MEDS ORDERED: ceFAZolin 2000MG 2,000 MG/15 ML SYR IV ONE (09:11)
[2024-01-28] MEDS: MoRPHine SULFATE 4 MG/ML 1 ML CARP\\VIAL IV PRN (09:56)
[2024-01-28] MEDS: ONDANSETRON INJ 2 MG/ML 2 ML VIAL IV PRN (09:56)
--- NOTE | 2024-01-28 10:37 | Anesthesiology Consultation ---
Date of Service January 28, 2024 Assessment & Plan Chart Review Chart Review: Acceptable Risk for Surgery and Patient NOT seen in Pre Admission Testing History Surgery Operation Date: 01/28/24 11:50 Proposed Procedures p Cystoscopy, Retrograde Pyelogram with Left Stent Placement - Uriah Escobedo MD Height/Weight Height: 5 ft 8 in Weight: 78.2 kg Allergies Allergy/AdvReac Type Severity Reaction Status Date / Time ibuprofen [From Advil] Allergy Hives Verified 12/24/23 08:48 Sulfa (Sulfonamide Allergy Hives Verified 12/24/23 08:48 Antibiotics) amoxicillin AdvReac Mild Uncoded 12/24/23 08:48 Medications Home Medications Medication Instructions Recorded Confirmed Last Taken hydrocodone 5 mg-acetaminophen 325 1 tab PO Q6H PRN pain #14 tabs 12/19/23 01/28/24 Unknown mg tablet tamsulosin 0.4 mg capsule 0.4 mg PO DAILY #30 caps 12/29/23 01/28/24 Unknown Active Medications Generic Name Dose Route Start Last Admin Trade Name Freq PRN Reason Stop Dose Admin Lactated Ringer's 1,000 mls @ 125 mls/hr 01/28/24 08:19 01/28/24 08:30 Lr IV 01/29/24 00:18 125 mls/hr .Q8H JEREMIAS Administration Morphine Sulfate 4 mg 01/28/24 08:19 01/28/24 09:56 Morphine Sulfate 4 Mg/Ml 1 Ml Carp\Vial IV 02/11/24 08:18 4 mg Q3H PRN Administration Pain (6,7,8,9,10) Ondansetron HCl 4 mg 01/28/24 08:19 01/28/24 09:56 Ondansetron Inj 2 Mg/Ml 2 Ml Vial IV 02/27/24 08:18 4 mg Q6H PRN Administration Nausea And Vomiting Past Medical History Medical History Kidney stone on left side Past Surgical History Surgical History History of tonsillectomy History of vasectomy Social History Smoking Status: Never smoker Hx Alcohol Use: Yes Alcohol type: wine Hx Substance Use: No Physical Exam Vital Signs Last Vital Signs Temp 36.7 C 01/28/24 02:37 Pulse 80 01/28/24 10:00 Resp 18 01/28/24 10:00 BP 140/90 01/28/24 10:00 Pulse Ox 98 01/28/24 10:00 O2 Del Method Nasal Cannula 01/28/24 10:00 O2 Flow Rate 2 01/28/24 10:00 Testing Laboratory Results 01/28/24 03:19 01/28/24 03:19 Urine Color Yellow 01/28/24 03:11 Urine Appearance Clear (Clear) 01/28/24 03:11 Urine pH 5.0 (4.5-7.5) 01/28/24 03:11 Ur Specific [place] 1.027 (1.000-1.030) 01/28/24 03:11 Urine Protein 1+ (Negative) H 01/28/24 03:11 Urine Glucose (UA) 1+ (Negative) H 01/28/24 03:11 Urine Ketones Negative (Negative) 01/28/24 03:11 Urine Nitrite Negative (Negative) 01/28/24 03:11 Ur Leukocyte Esterase Negative (Negative) 01/28/24 03:11 Urine WBC (Auto) 0-5 /hpf (0-5) 01/28/24 03:11 Urine RBC (Auto) >20 /hpf (0-2) H 01/28/24 03:11 U Hyaline Cast (Auto) 0-2 /lpf (0-2) 01/28/24 03:11 U Epithel Cells (Auto) 6-10 /hpf (0-2) H 01/28/24 03:11 Urine Bacteria (Auto) None Seen (None Seen) 01/28/24 03:11
[2024-01-28] MEDS ORDERED: DEXAMETHASONE SOD INJ 4 MG/ML VIAL ONE (12:34)
[2024-01-28] MEDS ORDERED: ONDANSETRON INJ 2 MG/ML 2 ML VIAL ONE (12:34)
[2024-01-28] MEDS ORDERED: LIDOCAINE 2% 2 ML VIAL/AMP(20MG/ML) INFIL ONE (12:34)
[2024-01-28] MEDS ORDERED: PROPOFOL IV EMULSION 10 MG/ML 20 ML VIAL IV ONE ×2 (12:34→12:35)
[2024-01-28] MEDS ORDERED: fentaNYL citrate PF 100 MCG/2 ML VIAL ONE (12:35)
[2024-01-28] MEDS ORDERED: MIDAZOLAM HCL 1 MG/ML 2ML VIAL ONE (12:35)
[2024-01-28] MEDS ORDERED: fentaNYL citrate PF 100 MCG/2 ML VIAL IV PRN (13:35)
[2024-01-28] MEDS ORDERED: ATROPINE SULFATE 0.1 MG/ML 10ML SYR IV PRN (13:35)
[2024-01-28] MEDS ORDERED: PROMETHAZINE HCL 6.25 MG in SODIUM CHLORIDE 0.9% 50 ML IV PRN (13:35)
[2024-01-28] MEDS: ceFAZolin 2000MG 2,000 MG/15 ML SYR IV SCH (14:08)
[2024-01-28] MEDS: DIATRIZOATE MEGLUMINE 30% 100ML VIAL INSTIL ONE (14:46)
--- NOTE | 2024-01-28 14:49 | Operative Report ---
PG Post Operative Report Pre & Post Diagnosis Left ureteral calculus Operation Date: 01/28/24 11:50 <No data on this case meets the specified criteria> Same I identified the patient and participated in the time-out.: Yes Procedure Cystoscopy, left retrograde pyelogram with radiographic interpretation, left ureteroscopy, laser lithotripsy, basket stone extraction, left ureteral stent placement Operation Date: 01/28/24 11:50 <No data on this case meets the specified criteria> Surgeon Uriah Escobedo MD Film Vault Supervisor None Estimated Blood Loss 5 Findings See Below Stone in distal ureter lasered and fragments removed. Retrograde showed no extravasation. Stent in appropriate position. Specimens None Drains 6x26 left ureteral stent Anesthesia Type General Complications none Indications 63-year-old male with a distal left ureteral calculus with intractable pain Description of Procedure After informed consent was obtained, the patient was transported to the operative suite. General anesthesia was induced. They were placed in dorsal lithotomy position and prepped and draped in sterile fashion. They received preoperative Ancef. An appropriate surgical timeout was performed. Rigid scope was inserted per urethra into the bladder. I turned my attention left ureteral orifice and advanced a sensor wire and confirmed this in the upper pole of the kidney fluoroscopically. Advanced a needle tip semirigid ureteroscope in the distal ureter encountered the stone. A 200 thulium laser fiber was inserted and the stone was broken up into smaller pieces. A 0 tip and no basket was inserted and these were basketed out into the bladder. I advanced the scope into the proximal ureter and noted no other stones. CT confirmed no other kidney stones. I shot a retrograde through the scope which showed no extravasation. Semirigid scope was removed. I backloaded the cystoscope over the wire and deployed a 6 [place] by 26 mm left ureteral stent with good proximal coil in the kidney confirmed fluoroscopically and a good distal coil in the bladder confirmed under direct visualization. Bladder was emptied and scope was removed. This concluded the end of the case. All counts correct at the end of the case. I was present scrubbed and actively participated for the entirety of the procedure I attest to the content of the Intraoperative Record and any orders documented therein. Any exceptions are noted below.
--- NOTE | 2024-01-28 15:07 | Fluoroscopy Report ---
FL retrograde includes kub CLINICAL HISTORY: LT RETROGRADE, LASER, STENT PLACEMENT COMPARISON STUDY: CT of the abdomen and pelvis performed earlier today. FLUOROSCOPY TIME: 8 seconds. Ka, r: 1.58 mGy FLUOROSCOPIC IMAGES: 1 FINDINGS: Fluoroscopy was provided during left retrograde pyelogram, lithotripsy and left ureteral st ent insertion. The proximal aspect of the stent is within the left renal pelvis. IMPRESSION: Fluoroscopy provided during left retrograde pyelogram, lithotripsy and left ureteral nova nt insertion. ACT 112: Negative or not required by law. Electronically signed by: Neel Darby M.D. 01/28/2024 3:06 PM
--- NOTE | 2024-01-28 15:46 | Anesthesiology Progress Note ---
Date of Service January 28, 2024 Anesthesia Post Procedure Vital Signs Vital Signs: Temp Pulse Pulse Pulse Resp BP BP 01/28/24 15:35 83 16 137/79 01/28/24 15:25 36.9 C 88 14 136/81 01/28/24 15:15 92 H 16 143/84 H 01/28/24 15:05 85 16 117/71 01/28/24 14:57 36.0 C L 91 H 16 120/87 01/28/24 13:18 37.0 C 88 18 150/83 H 01/28/24 12:00 79 18 128/76 01/28/24 10:30 67 18 115/78 01/28/24 10:00 80 18 140/90 01/28/24 09:30 74 18 129/77 01/28/24 09:01 81 18 135/77 01/28/24 07:59 84 18 117/75 01/28/24 06:00 73 15 128/84 01/28/24 05:00 87 14 142/76 H 01/28/24 04:18 01/28/24 03:53 85 18 132/75 01/28/24 02:37 36.7 C 88 20 151/90 H Pulse Ox O2 Del Method O2 Flow Rate 01/28/24 15:35 95 Room Air 01/28/24 15:25 96 Room Air 01/28/24 15:15 98 Oxymask 4 01/28/24 15:05 98 Oxymask 4 01/28/24 14:57 93 Oxymask 4 01/28/24 13:18 95 Room Air 01/28/24 12:00 98 Nasal Cannula 01/28/24 10:30 98 Nasal Cannula 2 01/28/24 10:00 98 Nasal Cannula 2 01/28/24 09:30 98 Nasal Cannula 2 01/28/24 09:01 98 Room Air 01/28/24 07:59 97 Room Air 01/28/24 06:00 98 Nasal Cannula 2 01/28/24 05:00 95 Nasal Cannula 2 01/28/24 04:18 96 Room Air 01/28/24 03:53 97 Room Air 01/28/24 02:37 96 Room Air Pain Intensity Left Flank: Pain Intensity: 5 Penis: Pain Intensity: 3 Transfer of Care Handoff Completed per policy Notes Mental Status: alert / awake / arousable Patient Amnestic to Procedure: Yes Nausea / Vomiting: adequately controlled Pain: adequately controlled Airway Patency, RR, SpO2: stable & adequate BP & HR: stable & adequate Hydration State: stable & adequate Anesthetic Complications: no major complications apparent
--- NOTE | 2024-01-28 16:55 | Discharge Summary ---
Date of Service January 28, 2024 Admission HPI Per Admitting Provider Collin Candelario is a pleasant 63yo male with history of renal stones - fairly new onset with first incident being in December 2023. He had a known stone on the left with intermittent pain. Was seen by Urology and had been on Flomax. Pain did improve so he thought the stone had passed. Today he developed left flank pain with radiation into the anterior abdomen, abdominal and rectal pressure earlier today. Also with nausea, vomiting and chills. Some decreased urination. NO report of fever, chest pain, cough or SOB ER Course: Tylenol MOrphine NSS Discharge Data Allergies Allergy/AdvReac Type Severity Reaction Status Date / Time ibuprofen [From Advil] Allergy Hives Verified 12/24/23 08:48 Sulfa (Sulfonamide Allergy Hives Verified 12/24/23 08:48 Antibiotics) amoxicillin AdvReac Mild Uncoded 12/24/23 08:48 Consultations 01/28/24 05:46 ED Decision to Admit Stat 01/28/24 06:29 Consult Urology Routine Procedures Performed Operation Date: 01/28/24 11:50 Actual Procedures p Cystoscopy, Left Ureteronephroscopy, Left Retrograde Pyelogram,Left Ureteral Stent Placement(Left) - Uriah Escobedo MD s Laser Lithotripsy with Stone Basket Extraction, (Left) - Uriah Escobedo MD Ordered Studies 01/28/24 02:58 CT abd pelvis wo con Stat 01/28/24 12:00 FL retrograde includes kub Routine Hospital Course (1) Kidney stone on left side: 63yo male presenting with left flank pain, nausea and vomiting. Found to have a large obstructing calculus 4.4 x 8mm at the left ureteral vesicular junction with increased perinephric stranding and hydronephrosis and diffuse hydroureter. UA does not appear to be infected although patient does have an elevated WBC count -Admit to medical -Tylenol and Morphine PRN pain -Zofran PRN nausea -Continue Flomax 0.4mg po daily -Continue IVF - LR at 125mL/hr - 2L ordered -Will keep patient NPO for now -Urology consultation appreciated -UA with uric acid crystals present - possible stone composition - would benefit from stone studies ?urine alkalinization (2) DEUCE (acute kidney injury): Elevation of BUN and Cr from baseline ( 25-->26 and 1.18 --> 1.47, respectively). -Monitor UOP -IVF as above -Repeat chemistry in AM -Avoid nephrotoxic agents. Renal dosing where needed (3) Kidney cysts: Patient had an MRI of the abdomen performed 01/26/24 to monitor renal cyst - noted to have a 1.8cm right renal lesion demonstrating restricted diffusion with equivocol enhancement. 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 Patient should have followup imaging and ongoing surveillance, possible referral for EUS Discharge Plan Discharge Items Reason For Visit: OBSTRUCTING LEFT RENAL STONE Discharge Diagnosis: obstructing left renal stone Condition on Discharge: Good Activity: Resume your previous activity Non-emergency contact: Primary Care Provider Call non-emergency contact if: you have any medication questions Follow-up/Referrals: Kash Woods DO [Primary Care Provider] - Diet: Regular Addtl Attending Provider Instructions: -Take Tylenol and ibuprofen as needed for discomfort. Oxycodone for breakthrough pain -Flomax and oxybutynin as needed for stent discomfort. This can cause dry mouth, dry eyes and constipation. Take MiraLAX [id number] as needed for constipation. -Normal to see blood in your urine while stent in place. As long as you are able to urinate, this is okay. -There are no restrictions while a stent is in place. Finish your previously prescribed antibiotics. Call with worsening pain or fevers. -You will get a call to schedule an appointment to have your stent removed in clinic. Pending Studies at Discharge: No Stand-Alone Forms: [facility] [place], Smoking Cessation Medications and DC Order Prescriptions: New oxybutynin chloride 5 mg tablet extended release 24hr 5 mg PO DAILY Qty: 5 0RF oxycodone 5 mg tablet 5 mg PO Q6H PRN (Reason: pain) Qty: 4 0RF acetaminophen 325 mg Tablet 650 mg PO QID 14 Days Qty: 112 0RF Continued tamsulosin 0.4 mg capsule 0.4 mg PO DAILY Qty: 30 0RF Discontinued hydrocodone-acetaminophen 5-325 mg tablet 1 tab PO Q6H PRN (Reason: pain) Qty: 14 0RF Admission Data Admit Date/Time: 01/28/24 06:07 Attending Provider: Arnold Hagan Admit Provider: Zaida Rosenberg Primary Care Provider: Kash Woods Other Providers: Saroj Bailey; Zaida Rosenberg Coding Diagnoses Kidney stone on left side N20.0 DEUCE (acute kidney injury) N17.9 Kidney cysts N28.1 Lesion of pancreas K86.9
[2024-01-28] MEDS: ACETAMINOPHEN 1,000 MG/100 ML VIAL IV PRN (18:16)
[2024-01-28] MEDS: TAMSULOSIN HCL 0.4 MG CAP PO SCH (21:03)
[2024-01-29] MEDS: ACETAMINOPHEN 325 MG TAB PO PRN (07:06)
[2024-01-29 07:45] LABS: Hemoglobin 13.7 g/dl (14.0-18.0); Mean Corpuscular Hemoglobin 31.9 pg (25.0-34.0); Mean Corpuscular Hgb Conc 33.4 g/dL (32.0-36.0); Mean Corpuscular Volume 95.6 fL (80.0-100.0); Mean Platelet Volume 11.1 fL (9.4-12.4); Platelet Count 188 K/uL (130-400); RDW Coefficient of Variation 11.9 % (11.5-14.5); RDW Standard Deviation 41.1 fL (36.4-46.3); Red Blood Count 4.29 M/uL (4.70-6.10); White Blood Count 12.98 K/ul (4.8-10.8)
[2024-01-29 08:03] LABS: BUN Creatinine Ratio 12.1 (10-20); Calcium 9.6 mg/dl (8.6-10.3); Creatinine Clr Calc Pharmacy 55.4 ml/min; Est GFR (African American) 66.1 ml/min; Potassium 3.8 mmol/L (3.5-5.1)
--- NOTE | 2024-01-29 08:09 | Urology Progress Note ---
Date of Service January 29, 2024 Assessment & Plan (1) Left ureteral stone: Plan: - Pt POD#1 s/p Cystoscopy, left retrograde pyelogram with radiographic interpretation, left ureteroscopy, laser lithotripsy, basket stone extraction, left ureteral stent placement - Doing well, progressing as expected - Afebrile, lab work reviewed - creatinine 1.32, WBC 12.98 - Tolerating left ureteral stent with minimal bother - Okay to d/c from perspective when medically stable - Recommend d/c with course of Tamsulosin, prn Pyridium and prn pain medication for stent management - Expected clinical course reviewed, all questions answered - Plan for stent removal in clinic tomorrow Admission and Anticipated Discharge Date Admission Date: January 28, 2024 Subjective Patient seen and examined at bedside No acute issues overnight Notes some urethral discomfort with voiding Reports passing some grit in his urine Hematuria clearing post procedure Denies nausea, vomiting, fever, or chills Review of Systems Constitutional: as per Subjective / HPI Gastrointestinal: as per Subjective / HPI Genitourinary: + as per Subjective / HPI Physical Exam Constitutional: well developed and well nourished; no acute distress Respiratory: normal respiratory effort; no respiratory distress and no labored breathing Gastrointestinal (Abdomen): Inspection/Auscultation: abdomen normal to inspection Musculoskeletal: Head/Neck/Chest: normocephalic Neurologic: moves all extremities and awake Psychiatric: Orientation: alert and oriented x 3 Results & Data Vital Signs (Past 12 Hours) Vital Signs Temp Pulse Resp BP Pulse Ox O2 Del Method 01/29/24 07:35 37 C 101 H 16 132/76 93 Room Air 01/28/24 23:20 37.5 C 67 18 143/80 H 96 Room Air PG Care Time/CCT Total # of Minutes Spent Total Time Spent with Patient: Total time spent is greater than 50% in coordination of care (as documented) at patient's floor/unit and/or counseling patient: Coding Level of Care Code 82597 SUB INP/OBS CARE 10/30MIN Diagnoses Left ureteral stone N20.1
[2024-01-29] MEDS ORDERED: TAMSULOSIN HCL 0.4 MG CAP PO SCH (09:00)
--- NOTE | 2024-01-29 18:49 | Discharge Summary ---
Discharge Summary Date of Service January 29, 2024 Notes For Next Care Provider Patient is scheduled for outpatient ureteral stent removal on 01/30/2024 Medication Changes From Visit Discharged on acetaminophen oxybutynin and oxycodone for symptom control Principal Dx & Hospital Course #1 = Principal Diagnosis (1) Kidney stone on left side: Patient underwent cystoscopy and left retrograde pyelogram after laser lithotripsy with stone basket extraction. Patient has stent placement on the left side. Patient scheduled for outpatient stent removal on 426 Symptom controlling medications including continue tamsulosin oxycodone and oxybutynin are given. (2) DEUCE (acute kidney injury): Resolved returns to CKD 3 (3) Lesion of pancreas: Previously noted lesion of pancreas was not visualized on a noncontrast examination. Continued outpatient follow-up as previously prescribed Discharge Exam Patient awake alert he is upright he is fully dressed he has had no complaints. He understands discharge instructions from urology service. Updated Medication List Medication Instructions Recorded Confirmed Type tamsulosin 0.4 mg capsule 0.4 mg PO DAILY #30 caps 12/29/23 01/28/24 Rx acetaminophen 325 mg tablet 650 mg (2 x 325 mg) PO QID 2 weeks 01/28/24 Rx #112 tabs oxybutynin chloride 5 mg 5 mg PO DAILY #5 tabs 01/28/24 Rx tablet,extended release 24 hr oxycodone 5 mg tablet 5 mg PO Q6H PRN pain #4 tabs 01/28/24 Rx Hospital Stay Data Consultations 01/28/24 05:46 ED Decision to Admit Stat 01/28/24 06:29 Consult Urology Routine Procedures Performed Operation Date: 01/28/24 11:50 Actual Procedures p Cystoscopy, Left Ureteronephroscopy, Left Retrograde Pyelogram,Left Ureteral Stent Placement(Left) - Uriah Escobedo MD s Laser Lithotripsy with Stone Basket Extraction, (Left) - Uriah Escobedo MD Diagnostic Imagining Performed 01/28/24 02:58 CT abd pelvis wo con Stat 01/28/24 12:00 FL retrograde includes kub Routine Pending Results Patient Have Any Pending Studies at Discharge: No Discharge Instructions Given to Patient (Per Discharging Provider) -Take Tylenol and ibuprofen as needed for discomfort. Oxycodone for breakthrough pain -Flomax and oxybutynin as needed for stent discomfort. This can cause dry mouth, dry eyes and constipation. Take MiraLAX [id number] as needed for constipation. -Normal to see blood in your urine while stent in place. As long as you are able to urinate, this is okay. -There are no restrictions while a stent is in place. Finish your previously prescribed antibiotics. Call with worsening pain or fevers. -You will get a call to schedule an appointment to have your stent removed in clinic. Total Time Total Time Spent Total Time Spent (In Minutes): It required less than 30 minutes to prepare this patient for discharge. Coding Level of Care Code 52232 IN/OBS DISCH 30 MIN/LESS Diagnoses Kidney stone on left side N20.0 DEUCE (acute kidney injury) N17.9 Lesion of pancreas K86.9
== END 2024-01-29 14:25 | disposition home or self-care (01) ==
LOC: ED 02:31 → SUATTDRO 06:07 → EDINP 06:07 → INTOOBSV 06:07 → EDINP 08:20 → 3N 15:59

== ENCOUNTER 2024-12-02 06:01 | Observation (INO) ==
--- NOTE | 2024-11-22 12:45 | Anesthesiology Consultation ---
Date of Service November 22, 2024 Assessment & Plan (1) Encounter for pre-operative examination: Chart Review Chart Review: Acceptable Risk for Surgery History Surgery Operation Date: 12/02/24 07:30 Proposed Procedures p Robotic Assisted Laparoscopic Partial Nephrectomy - Right - Jorge Chao DO Height/Weight Height: 5 ft 8 in Weight: 72.575 kg Allergies Allergy/AdvReac Type Severity Reaction Status Date / Time orange Allergy Severe Anaphylaxis Verified 11/19/24 12:46 amoxicillin Allergy Intermediate skin Verified 11/19/24 12:46 peeled off tongue ibuprofen [From Advil] Allergy Intermediate Hives Verified 11/19/24 12:46 Sulfa (Sulfonamide Allergy Intermediate Hives Verified 11/19/24 12:46 Antibiotics) Medications Home Medications Medication Instructions Recorded Confirmed Last Taken cholecalciferol (vitamin D3) 50 50 mcg PO DAILY 02/03/24 11/19/24 Unknown mcg (2,000 unit) capsule vitamin E (dl, acetate) 180 mg 180 mg PO DAILY 02/03/24 11/19/24 Unknown (400 unit) capsule diphth,pertus(acell),tetanus 2.5 0.5 ml IM ONCE #0.5 mL 08/05/24 11/10/24 Unknown Lf unit-8 mcg-5 Lf/0.5mL IM syringe (Boostrix Tdap) cetirizine 10 mg tablet (Zyrtec) 10 mg PO DAILY 11/10/24 11/19/24 Unknown vitamin B complex 1 cap PO DAILY 11/19/24 11/19/24 Unknown Past Medical History Medical History IPMN (intraductal papillary mucinous neoplasm) side branch IPMN MRI 01/26/24 Lesion of pancreas Monitoring Acid reflux Hx of Lyme disease completed antibiotic tx History of kidney stones DEUCE (acute kidney injury) Kidney lesion, [place], right Reason for procedure 12/02/24 Past Family History Family History Mother Breast cancer Hypertension Father Colorectal cancer Grandfather (Paternal) Stomach cancer Sister Hypertension Denies family history of Ovarian cancer Prostate cancer Myocardial infarction Lung cancer Past Surgical History Surgical History Hx of colonoscopy History of lithotripsy H/O wisdom tooth extraction History of tonsillectomy History of vasectomy Social History Smoking Status: Never smoker Do You Dip or Chew Tobacco: No Hx Alcohol Use: Yes Alcohol type: wine alcohol intake frequency: 0-2 drinks per day Hx Substance Use: No substance use type: does not use Testing Laboratory Results Laboratory Tests 11/10/24 09:46 Hgb 14.5 Plt Count 210 Potassium 4.3 Creatinine 1.00 Electrocardiogram Date: 12/19/23 Findings: + NSR @ (82)
[2024-12-02] MEDS: LACTATED RINGER'S 1,000 ML IV SCH (06:40)
[2024-12-02] MEDS ORDERED: fentaNYL citrate PF 100 MCG/2 ML VIAL ONE (07:05)
[2024-12-02] MEDS ORDERED: MIDAZOLAM HCL 1 MG/ML 2ML VIAL ONE (07:05)
[2024-12-02] MEDS ORDERED: PROPOFOL IV EMULSION 10 MG/ML 20 ML VIAL IV ONE ×2 (07:06)
[2024-12-02] MEDS ORDERED: GLYCOPYRROLATE 0.2 MG/ML VIAL ONE ×2 (07:06→10:27)
[2024-12-02] MEDS ORDERED: ROCURONIUM BROMIDE 10 MG/ML 5 ML VIAL IV ONE ×3 (07:06→09:39)
[2024-12-02] MEDS ORDERED: ONDANSETRON INJ 2 MG/ML 2 ML VIAL ONE (07:06)
[2024-12-02] MEDS ORDERED: LIDOCAINE 2% 2 ML VIAL/AMP(20MG/ML) INFIL ONE (07:06)
[2024-12-02] MEDS ORDERED: DEXAMETHASONE SOD INJ 4 MG/ML VIAL ONE (07:06)
--- NOTE | 2024-12-02 07:12 | History & Physical Bridge Note ---
Date of Service December 02, 2024 History & Physical Bridge Note I have examined the patient, reviewed the History & Physical and in the interval since the performance of the History & Physical I have noted the following changes of clinical significance: no changes noted
[2024-12-02] MEDS ORDERED: PHENYLEPHRINE HCL 10 MG/ML VIAL ONE (07:13)
[2024-12-02] MEDS: ceFAZolin 2000MG 2,000 MG/15 ML SYR IV SCH ×2 (07:30→15:24)
[2024-12-02] MEDS ORDERED: diphenhydrAMINE 50 MG/ML VIAL ONE (09:01)
[2024-12-02] MEDS ORDERED: fentaNYL citrate PF 100 MCG/2 ML VIAL IV PRN (09:40)
[2024-12-02] MEDS ORDERED: ePHEDrine sulfate 50 MG/ML AMP IV PRN (09:40)
[2024-12-02] MEDS ORDERED: ONDANSETRON INJ 2 MG/ML 2 ML VIAL IV PRN ×2 (09:40→12:41)
[2024-12-02] MEDS ORDERED: HYDROmorphone INJ 2 MG/ML SYR/VIAL IV PRN (09:40)
[2024-12-02] MEDS ORDERED: ATROPINE SULFATE 0.1 MG/ML 10ML SYR IV PRN (09:40)
[2024-12-02] MEDS ORDERED: PROMETHAZINE HCL 6.25 MG in SODIUM CHLORIDE 0.9% 50 ML IV PRN (09:40)
[2024-12-02] MEDS: SURGICEL ABSORB HEMOSTAT 2IN X 14IN TOP ONE (09:56)
[2024-12-02] MEDS: TISSEEL FIBRIN SEALANT 10ML TOP ONE (10:10)
[2024-12-02] MEDS: FLOSEAL HEMOSTATIC MATRIX 10ML TOP ONE (10:10)
[2024-12-02] MEDS ORDERED: HYDROmorphone INJ 2 MG/ML SYR/VIAL ONE (10:11)
[2024-12-02] MEDS ORDERED: SUGAMMADEX SODIUM 200 MG/2 ML VIAL IV ONE (10:25)
[2024-12-02] MEDS: BUPIVACAINE 0.5 % 5 MG/1 ML MPF 30ML VIAL ONE (10:34)
--- NOTE | 2024-12-02 10:50 | Operative Report ---
PG Post Operative Report Pre & Post Diagnosis Operation Date: 12/02/24 07:30 Pre-Op Diagnosis: 1. Right Kidney Lesion, [place], 2. Intraductal Papillary Mucinous Neoplasm, 3. Acute Kidney Injury, 4. Kidney Cysts Post-Op Diagnosis: 1. Right Kidney Lesion, [place], 2. Intraductal Papillary Mucinous Neoplasm, 3. Acute Kidney Injury, 4. Kidney Cysts I identified the patient and participated in the time-out.: Yes Procedure Operation Date: 12/02/24 07:30 Actual Procedures p Robotic Assisted Laparoscopic Right Partial Nephrectomy(Right), Extensive lysis of adhesions. - Jorge Chao, Surgeon Jorge Chao, II, DO Video Recorder Mechanic Concha GROVE and Chase BARDALES Estimated Blood Loss 800 Findings Consistent with Post-Op Diagnosis Mass anterior within the perihilar region. Complex vasculature with multiple vessels and branches. Bleeding during mass removal. Possible incomplete clamping of vessels. Extensive adhesions of the right lateral wall to omentum. No bowel involved. Specimens Right renal mass Drains 10 Fr Garrison drain 18 Fr Rodriguez Anesthesia Type General Complications none Disposition Disposition: Recovery Room Indications Patient with right renal mass suspicious for malignancy. Risks and benefits discussed at length. Description of Procedure The patient was brought to the operative suite and placed under general endotracheal intubation anesthesia in the supine position. The patient was transferred to lateral position with the right flank exposed. The patient was placed into a flex'ed position and then placed into mild reverse Trendelenberg. At this point, the patient prepped and draped in the usual sterile fashion and a timeout was completed. Preoperative weight based antibiotics had been given. TIM's and SCD's were placed on the patient's lower extremities. A catheter was placed by nursing using sterile technique. With the time out completed the patient was flexed and the skin was marked. The lateral port site was anesthetized. A small incision was made into the skin and subcutaneous tissues. A Varess needle was selected and placed. The needle was easily moved and it was irrigated and aspirated without any issues or concerns for placement. Insufflation commenced. The 8 mm camera port was placed. The abdominal cavity was further insufflated. The laparoscopic camera was placed and the abdominal cavity inspected. No concerning features were noted. At this point, the skin was marked for port placement and 8mm working ports were placed. The skin was anesthetized down to fascia and an approx 1cm incision was made to place the 2 x 8mm ports. Two 12 mm account management assistant ports were also placed in similar fashion under direct visualization. The robot was positioned and docked. The camera was placed and all trocars were positioned under direct visualization. Reema Kern was integral in port placement, camera utilization, and docking procedure. She also assisted during the extensive lysis of adhesions. She remained in sterile attire and then proceeded to assist the remainder of the case. The colon was mobilized medially to expose the retroperitoneum and the area assessed. Adhesions were freed to allow mobilization. A small amount of further adhesions were noted from the omentum and were freed. These were dissected with blunt technique. Cautery was used to assist dissection and control bleeding. The retroperitoneal fat was assessed. Starting distally the retroperitoneum was dissected and care was taken to dissect down near the IVC. The gonadal vein and ureter were identified. This was then followed superiorly. Dissection stayed toward the midline along the IVC and the ureter and gonadal vein were followed up towards the renal hilum. The dissection was followed to the renal pelvis. The Renal Vein was identified and exposed. Dissection was taken further superior. The Renal Artery and Vein were then cleaned and exposed. Multiple vessels were encountered with multiple branches. The vasculature was found to be complex with multiple vessels. A large renal vein and artery were discovered more superior with an inferior artery and vein some what posterior to the vessels. Clamp placement was assessed and good access was achieved. The perirenal fat anterior to the kidney was then dissected. The mass and surrounding tissues were exposed. The kidney was then further mobilized. The ultrasound probe was placed and the mass further examined. The edges were marked. The mass appeared to sit directly on the hilum region of the kidney with close proximity to a branch of the renal vein. Dr. Stone assumed the position of first breaker feeder for the removal of the mass. The Vessels were assessed a final time. A bulldog clamp was placed on the artery and then on the vein. A set of Bulldog clamps were then placed on the inferior vessels. The kidney appropriately blanched. The previously marked margins were used to start the incision into the kidney. The mass was completely excised without evidence of penetrating into the capsule of the mass. During the dissection there was notable bleeding coming from the edges of the nephrotomy. With the active bleeding it appeared the clamps were unsuccessful at clamping the vessels vs additional accessory vessels. The mass was quite deep and dissection was taken down and went just above a branch of the renal vein. The base of resection bed was assessed and small vessels were cauterized. A 2-0 barbed suture was selected and the nephrotomy closed. Care was taken to close the bleeding vessels. 3-0 Vicryl sutures were then used to close the edges of the elliptical opening. Five Vicryl sutures were used to close and bolster the edges. At this point, the bulldog clamps were removed. Warm ischemia time, in total, was 25 minutes. Due to active bleeding was likely not totally occulded by the clamps and may not have been fully ischemic. The kidney was full assessed after removal of clamps. No bleeding or other major areas of concern. Weck and Hemolock clips were used to bolster and tightened to approximate the edges. Surgicel hemostatic agent sheets were placed over the vessels and on the incised edge. Hemostatic agents Tisseel and Floseal were also placed. Hemostatic agent was also placed on the vessels. No major bleeding or other issues. Gerota's tissues were replaced utilizing a 2-0 vlock suture and weck clips to cover the area. The excised mass was placed in an endocatch bag for removal. A Flat drain was placed through the lateral inferior port and the port was removed. It was positioned in the gutter lateral to the liver and colon. This was secured with a silk 1-0 suture. The entire dissection space was inspected one final time. No bleeding or injuries or areas of concern were noted. No tumor or other concerning features were noted. At this point, the robot was undocked and moved away from the patient. The port sites were all assessed laparoscopically. The endoscopic bag was moved into the perimedian port. The superior 12 mm port site was closed with the Mitchell- Gray device and were closed with Vicryl suture. The other ports were assessed and no issues observed. The inferior account management assistant port was opened further exposing fascia which was then opened in order to removed the mass within the bag. A 1-0 PDS suture was used to close fascia. The skin at each site was closed with a stapling device. The area was cleaned and bandages placed on each incision. The patient was cleaned and bandaged. The patient was moved back into the supine position The patient was cleaned, aroused from anesthesia, and transferred to the pacu in stable condition having tolerated the procedure well with no complications. I was present and participated in all aspects of the procedure. PERFECTO Davison was critical in the portions as mentioned above. Dr. Stone was involved in the removal of the mass and closure of the nephrotomy. Plan to monitor overnight. May be able to remove catheter tomorrow and drain tomorrow afternoon. Will followup in 1-2 weeks for staple removal and pathology. I attest to the content of the Intraoperative Record and any orders documented therein. Any exceptions are noted below.
[2024-12-02 11:20] LABS: Basophils # (auto) 0.06 K/uL (0.00-0.20); Basophils % (auto) 0.3 %; Eosinophils # (auto) 0.08 K/uL (0.00-0.50); Eosinophils % (auto) 0.4 %; Hematocrit (blood only) 35.2 % (42.0-52.0); Hemoglobin 12.1 g/dl (14.0-18.0); Immature Granulocytes # (auto) 0.29 K/uL (0.01-0.20); Immature Granulocytes % (auto) 1.3 %; Lymphocytes # (auto) 1.76 K/uL (1.20-3.40); Lymphocytes % (auto) 8.2 %; Mean Corpuscular Hemoglobin 32.8 pg (25.0-34.0); Mean Corpuscular Hgb Conc 34.4 g/dL (32.0-36.0); Mean Corpuscular Volume 95.4 fL (80.0-100.0); Mean Platelet Volume 10.8 fL (9.4-12.4); Monocytes # (auto) 0.71 K/uL (0.11-0.59); Monocytes % (auto) 3.3 %; Neutrophils # (auto) 18.64 K/uL (1.40-6.50); Neutrophils % (auto) 86.5 %; Platelet Count 178 K/uL (130-400); RDW Coefficient of Variation 11.9 % (11.5-14.5); RDW Standard Deviation 41.2 fL (36.4-46.3); Red Blood Count 3.69 M/uL (4.70-6.10); White Blood Count 21.54 K/ul (4.8-10.8)
[2024-12-02 11:37] LABS: BUN Creatinine Ratio 21.3 (10-20); Calcium 8.3 mg/dl (8.6-10.3); Creatinine Clr Calc Pharmacy 66.9 ml/min; Potassium 3.4 mmol/L (3.5-5.1)
--- NOTE | 2024-12-02 11:43 | Anesthesiology Progress Note ---
Date of Service December 02, 2024 Anesthesia Post Procedure Vital Signs Vital Signs: Temp Pulse Pulse Resp BP Pulse Ox O2 Del Method 12/02/24 10:53 36.2 C L 82 16 112/75 96 Oxymask 12/02/24 06:16 36.5 C 75 18 127/90 96 Room Air O2 Flow Rate 12/02/24 10:53 8 12/02/24 06:16 Pain Intensity Abdomen: Pain Intensity: 4 Transfer of Care Handoff Completed per policy Notes Mental Status: alert / awake / arousable and participated in evaluation Patient Amnestic to Procedure: Yes Nausea / Vomiting: adequately controlled Pain: adequately controlled Airway Patency, RR, SpO2: stable & adequate BP & HR: stable & adequate Hydration State: stable & adequate Anesthetic Complications: no major complications apparent
[2024-12-02] MEDS ORDERED: HYDROmorphone INJ 0.5 MG/0.5 ML SYR IV PRN (12:41)
[2024-12-02] MEDS ORDERED: oxyCODONE HCL IR 5 MG TAB (IMMEDIATE RELEASE) PO PRN ×2 (12:41)
[2024-12-02] MEDS: SODIUM CHLORIDE 0.9% 1,000 ML IV SCH (13:25)
[2024-12-02] MEDS: ACETAMINOPHEN 325 MG TAB PO SCH (14:14)
[2024-12-02] MEDS: SODIUM CHLORIDE 0.9% 500 ML IV ONE (14:49)
[2024-12-02] MEDS: oxyBUTYnin chloride 5 MG TAB PO PRN (15:57)
[2024-12-02] MEDS: DOCUSATE SODIUM 100 MG CAP PO SCH (20:50)
[2024-12-03] MEDS ORDERED: COUGH DROP (SUGAR FREE) LOZ 24 LOZ/1 BOX BUCCAL PRN (02:07)
[2024-12-03] MEDS: COUGH DROP (SUGAR FREE) LOZ 24 LOZ/1 BOX BUCCAL ONE (02:30)
[2024-12-03 07:17] LABS: Basophils # (auto) 0.02 K/uL (0.00-0.20); Basophils % (auto) 0.1 %; Eosinophils # (auto) 0.02 K/uL (0.00-0.50); Eosinophils % (auto) 0.1 %; Hematocrit (blood only) 27.4 % (42.0-52.0); Hemoglobin 9.4 g/dl (14.0-18.0); Immature Granulocytes % (auto) 0.7 %; Lymphocytes # (auto) 1.14 K/uL (1.20-3.40); Lymphocytes % (auto) 7.8 %; Mean Corpuscular Hemoglobin 32.2 pg (25.0-34.0); Mean Corpuscular Hgb Conc 34.3 g/dL (32.0-36.0); Mean Corpuscular Volume 93.8 fL (80.0-100.0); Mean Platelet Volume 10.9 fL (9.4-12.4); Monocytes # (auto) 1.39 K/uL (0.11-0.59); Monocytes % (auto) 9.5 %; Neutrophils # (auto) 11.94 K/uL (1.40-6.50); Neutrophils % (auto) 81.8 %; Platelet Count 153 K/uL (130-400); RDW Coefficient of Variation 12.2 % (11.5-14.5); RDW Standard Deviation 41.8 fL (36.4-46.3); Red Blood Count 2.92 M/uL (4.70-6.10); White Blood Count 14.61 K/ul (4.8-10.8)
[2024-12-03 07:38] VITALS: RESP 16
[2024-12-03 07:41] LABS: BUN Creatinine Ratio 19.7 (10-20); Calcium 7.6 mg/dl (8.6-10.3); Creatinine Clr Calc Pharmacy 61.7 ml/min; Potassium 3.9 mmol/L (3.5-5.1)
[2024-12-03] MEDS: CHOLECALCIFEROL 25 MCG (1000 UNITS) TAB PO SCH (09:04)
[2024-12-03] MEDS: CETIRIZINE HCL 10 MG TABLET PO SCH (09:04)
--- NOTE | 2024-12-03 09:10 | Urology Progress Note ---
Date of Service December 03, 2024 Assessment & Plan (1) Kidney lesion, nome, right: Plan - Patient POD#1 s/p right partial nephrectomy for 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 - Doing well, progressing as expected - Afebrile, mild tachycardia post operatively, normotensive - Lab work reviewed and as expected - Minimal pain - Tolerating clear liquid diet - will advance diet as tolerated - Encouraged OOB ambulation - Incisions appropriate - STU with minimal output - Rodriguez draining with clear urine - Discontinue Rodriguez catheter this morning, monitor for void - Plan to remove STU drain prior to discharge - Expected clinical course reviewed, all questions answered - Anticipate discharge to home later today if he continues to progress as expected - Outpatient follow-ups in place Admission and Anticipated Discharge Date Admission Date: December 02, 2024 Subjective Patient seen and examined at bedside this morning. He is awake, alert and sitting up in bed. Reports minor discomfort at incisions. Pain is well-managed with scheduled Tylenol. Tolerating liquid diet. Denies nausea, vomiting, fever or chills. Rodriguez intact. Labs reviewed - creatinine 1.17, WBC 14.61, hgb 9.4. Review of Systems Constitutional: as per Subjective / HPI Genitourinary: + as per Subjective / HPI Physical Exam Constitutional: well developed and well nourished; no acute distress Respiratory: normal respiratory effort; no respiratory distress and no labored breathing Gastrointestinal (Abdomen): Inspection/Auscultation: abdomen normal to inspection Musculoskeletal: Head/Neck/Chest: normocephalic Incisions C/D/I with dominique, minor drainage on STU drain site. STU with serosanguinous drainage. Neurologic: moves all extremities and awake Psychiatric: Orientation: alert and oriented x 3 Genitourinary: Rodriguez draining clear yellow Results & Data Vital Signs (Past 12 Hours) Vital Signs Temp Pulse Pulse Resp BP BP Pulse Ox 12/03/24 07:35 37.0 C 91 H 16 124/74 95 12/03/24 04:50 37.4 C 101 H 18 126/70 95 12/02/24 23:53 37.3 C 102 H 18 114/71 94 O2 Del Method 12/03/24 07:35 Room Air 12/03/24 04:50 Room Air 12/02/24 23:53 Room Air PG Care Time/CCT Total # of Minutes Spent Total Time Spent with Patient: Total time spent is greater than 50% in coordination of care (as documented) at patient's floor/unit and/or counseling patient: Coding Level of Care Code None Diagnoses Kidney lesion, nome, right N28.9
[2024-12-03 12:01] VITALS: TEMP 98.1; O2SAT 97
--- NOTE | 2024-12-03 13:58 | Discharge Summary ---
Date of Service December 03, 2024 Admission HPI Per Admitting Provider Patient with right renal mass here for definitive treatment Principal Diagnosis Right renal mass Discharge Exam Constitutional well developed and well nourished; no acute distress Respiratory normal respiratory effort; no respiratory distress and no labored breathing Gastrointestinal (Abdomen) Inspection/Auscultation: abdomen normal to inspection Musculoskeletal Head/Neck/Chest: normocephalic Neurologic moves all extremities and awake Psychiatric Orientation: alert and oriented x 3 Discharge Data Allergies Allergy/AdvReac Type Severity Reaction Status Date / Time orange Allergy Severe Anaphylaxis Verified 12/02/24 06:14 amoxicillin Allergy Intermediate skin Verified 12/02/24 06:14 peeled off tongue ibuprofen [From Advil] Allergy Intermediate Hives Verified 12/02/24 06:14 Sulfa (Sulfonamide Allergy Intermediate Hives Verified 12/02/24 06:14 Antibiotics) wheat Allergy Verified 12/03/24 08:03 Procedures Performed Operation Date: 12/02/24 07:30 Actual Procedures p Robotic Assisted Laparoscopic Right Partial Nephrectomy(Right) - Jorge Chao, DO Hospital Course (1) Kidney lesion, [place], right: Plan - Patient POD#1 s/p right partial nephrectomy for 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 - Doing well, progressing as expected - Afebrile, mild tachycardia post operatively, normotensive - Lab work reviewed and as expected - Minimal pain - Tolerating clear liquid diet - will advance diet as tolerated - Encouraged OOB ambulation - Incisions appropriate - STU with minimal output - Rodriguez draining with clear urine - Discontinue Rodriguez catheter this morning, monitor for void - Plan to remove STU drain prior to discharge - Expected clinical course reviewed, all questions answered - Anticipate discharge to home later today if he continues to progress as expected - Outpatient follow-ups in place Total Time Total Time Spent Total Time Spent (In Minutes): 15 Discharge Plan Discharge Items Patient Disposition: Home - Self-Care Reason For Visit: Right Kidney Lesion, Acute Kidney Injury, Kidney C Discharge Diagnosis: Right kidney lesion Activity: Per Instructions section Lifting: No more than 10 pounds Bathing Comment: Okay to shower after discharge Sexual Activity: Wait until after follow-up appointment Exercise/Sports: Wait until after follow-up appointment Driving/Machine Use: No driving while taking prescription pain medication Non-emergency contact: Surgeon and Urologist Call non-emergency contact if: your pain is not controlled, your pain is worsening, you have a fever, your temperature is above 101, your wound has increased redness, your wound has increased drainage and your wound pain has increased Follow-up/Referrals: Jorge Chao DO [Physician] - 12/24/24 8:15 am Kash Woods DO [Primary Care Provider] - [facility],Nurse [FAKE FOR SCHEDULES] - 12/10/24 11:15 am Diet: Regular Addtl Attending Provider Instructions: Please take all medications as prescribed and keep all follow-ups as scheduled. Please call our office at [phone] with any questions, concerns or need to reschedule appointments for any reason. We are happy to assist you. Recovering at home: We recommend having someone with you for the first few days after surgery to help care for you. It is okay to shower tomorrow. Please avoid swimming, bathing or using hot tub until incisions are well healed. Avoid driving until you are not requiring pain medication any further. Walk at least a few times a day. Increase your distance, as you feel able. Stairs in your home are okay. Please avoid strenuous or sexual activity until your follow-up. We recommend using stool softener (i.e. Colace) to prevent constipation and straining, especially the first two weeks post operatively. Call [facility] at [phone] if you experience: Chest pain or trouble breathing (call [phone] or go to the hospital). Fever of 101F or higher Symptoms of infection at incision site, including redness or swelling, warmth, or bad-smelling drainage If you have catheter, and you notice: o Bloody urine or drainage that is dark red or has large clots (Please remember a small amount of blood is normal) o No drainage from the catheter for more than 6 hours o The catheter comes out of your bladder Pain that is not controlled with medicines Pending Studies at Discharge: Yes Stand-Alone Forms: My [employer], Smoking Cessation Medications and DC Order Prescriptions: New oxycodone-acetaminophen [Percocet] 5-325 mg tablet 1 tab PO TID PRN (Reason: pain) Qty: 7 0RF cephalexin 500 mg capsule 500 mg PO BID 7 Days Qty: 14 0RF Continued cholecalciferol (vitamin D3) 50 mcg (2,000 unit) capsule 50 mcg PO DAILY cetirizine [Zyrtec] 10 mg tablet 10 mg PO DAILY vitamin E (dl, acetate) 180 mg (400 unit) capsule 180 mg PO DAILY vitamin B complex Capsule 1 cap PO DAILY Discharge Orders: Discharge Order (Routine); Ordered 12/03/24 Ordered By: Reema Kern Admission Data Admit Date/Time: 12/02/24 10:42 Attending Provider: Jorge Chao Admit Provider: Jorge Chao Primary Care Provider: Kash Woods Other Interventions: Discharge Summary Assessment (RN) Last Done: 12/03/24 17:21 Coding Level of Care Code 25956 IN/OBS DISCH 30 MIN/LESS Diagnoses Kidney lesion, [place], right N28.9
[2024-12-03] MEDS: HYDROmorphone INJ 0.5 MG/0.5 ML SYR IV PRN (15:50)
[2024-12-03 17:22] VITALS: BP 124/74; PULSE 101
--- NOTE | 2024-12-03 21:52 | Electrocardiogram Report ---
Test Reason : Blood Pressure : */* mmHG Vent. Rate : 106 BPM Atrial Rate : 106 BPM P-R Int : 146 ms QRS Dur : 84 ms QT Int : 378 ms P-R-T Axes : 44 12 -7 degrees QTcB Int : 502 ms Sinus tachycardia with occasional Premature ventricular complexes Nonspecific ST and T wave abnormality Prolonged QT Abnormal ECG When compared with ECG of 19-Dec-2023 16:50, Premature ventricular complexes are now Present Non-specific change in ST segment in Anterior leads T wave inversion now evident in Anterior leads QT has lengthened Confirmed by Wilner Lemus ([id number]) on 12/03/2024 9:52:07 PM Referred By: Jorge Chao Confirmed By: Wilner Lemus
== END 2024-12-03 17:22 | disposition home or self-care (01) | DRG 657 ==
LOC: ASU 06:01 → INTOOBSV 10:42 → 3E 10:42

== ENCOUNTER 2024-12-03 23:11 | Inpatient (IN) ==
[2024-12-03 23:55] LABS: iSTAT Creatinine 1.3 mg/dl (0.6-1.3); iSTAT Hemoglobin 10.5 g/dl (14.0-18.0); iSTAT Ionized Calcium 1.15 mmol/l (1.12-1.32); iSTAT Potassium 3.6 mmol/L (3.3-5.0)
[2024-12-03] MEDS: OPTIRAY 320 100ml IV ONE (23:57)
[2024-12-04] MEDS: ACETAMINOPHEN 1,000 MG/100 ML VIAL IV STA (00:15)
[2024-12-04] MEDS: SODIUM CHLORIDE 0.9% 1,000 ML IV SCH (00:15)
[2024-12-04 00:19] LABS: Base Excess VBG 3.2 mEq/L; HCO3 VBG 28 mmol/L; Oxygen Saturation VBG < 60.0 %; PCO2 VBG 42 mmHg (38-50); PO2 VBG 23 mmHg; pH VBG 7.43 (7.36-7.41)
[2024-12-04 00:25] LABS: Basophils # (auto) 0.02 K/uL (0.00-0.20); Basophils % (auto) 0.1 %; Eosinophils # (auto) 0.06 K/uL (0.00-0.50); Eosinophils % (auto) 0.3 %; Hematocrit (blood only) 31.3 % (42.0-52.0); Hemoglobin 10.7 g/dl (14.0-18.0); Immature Granulocytes # (auto) 0.12 K/uL (0.01-0.20); Immature Granulocytes % (auto) 0.6 %; Lymphocytes # (auto) 1.14 K/uL (1.20-3.40); Lymphocytes % (auto) 5.6 %; Mean Corpuscular Hemoglobin 32.8 pg (25.0-34.0); Mean Corpuscular Hgb Conc 34.2 g/dL (32.0-36.0); Mean Platelet Volume 11.1 fL (9.4-12.4); Monocytes # (auto) 1.54 K/uL (0.11-0.59); Monocytes % (auto) 7.6 %; Neutrophils # (auto) 17.33 K/uL (1.40-6.50); Neutrophils % (auto) 85.8 %; Platelet Count 173 K/uL (130-400); RDW Standard Deviation 42.4 fL (36.4-46.3); Red Blood Count 3.26 M/uL (4.70-6.10); White Blood Count 20.21 K/ul (4.8-10.8)
[2024-12-04] MEDS: SODIUM CHLORIDE 0.9% 500 ML IV ONE (00:37)
[2024-12-04] MEDS: SODIUM CHLORIDE 0.9% 1,000 ML IV ONE (00:37)
[2024-12-04 00:41] LABS: Albumin Globulin Ratio 1.5 (0.9-2); BUN Creatinine Ratio 12.8 (10-20); Bilirubin Direct 0.2 mg/dl (0-0.2); Bilirubin,Total 1.2 mg/dl (0.2-1.0); Calcium 8.6 mg/dl (8.6-10.3); Creatinine Clr Calc Pharmacy 57.8 ml/min; Globulin 2.7 gm/dl (2.5-4.0); Magnesium 1.9 mg/dl (1.7-2.4); Potassium 3.6 mmol/L (3.5-5.1); Total Protein 6.7 gm/dl (6.0-8.3)
--- NOTE | 2024-12-04 00:44 | XRay Report ---
Exam(s): XR CXR 1 VIEW EXAM: XR Chest, 1 View CLINICAL HISTORY: Reason for exam: Sepsis. TECHNIQUE: Frontal views of the chest. COMPARISON: No relevant prior studies available. FINDINGS: There is a poor inspiratory effort. Lungs: There are linear densities at the lung bases.. No consolidation. Pleural space: No pleural effusion is seen. No pneumothorax. Heart: Heart does not appear enlarged.. Mediastinum: There is uncoiling of thoracic aorta.. Bones/joints: There are degenerative changes in the spine.. IMPRESSION: Poor inspiratory effort. There are bibasilar areas of scarring and/or atelectasis. Electronically signed by: Ranjeet Frost MD 12/04/24 00:43 AM
--- NOTE | 2024-12-04 00:47 | Emergency Department Note ---
History of Present Illness General Chief complaint: Abdominal Pain Stated complaint: FEVER, CHILLS, NAUSEA, ABD PAIN Time Seen by Provider: 12/03/24 23:30 History of Present Illness Provider complaint: Fever abdominal pain Onset (ago): day(s) 1 Maximum Pain Intensity: 4 64-year-old male presents emergency department for abdominal pain and fever. Patient reports he had a nephrectomy done by Dr. Chao yesterday. He states he was discharged from the hospital at 5 PM today and then began having fever Tmax 102. Home Medications Medication Instructions Recorded Confirmed Type cholecalciferol (vitamin D3) 50 50 mcg PO DAILY 02/03/24 12/02/24 History mcg (2,000 unit) capsule vitamin E (dl, acetate) 180 mg 180 mg PO DAILY 02/03/24 12/02/24 History (400 unit) capsule cetirizine 10 mg tablet (Zyrtec) 10 mg PO DAILY 11/10/24 12/02/24 History vitamin B complex 1 cap PO DAILY 11/19/24 12/02/24 History cephalexin 500 mg capsule 500 mg PO BID 7 days #14 caps 12/03/24 Rx oxycodone-acetaminophen 5 mg-325 1 tab PO TID PRN pain #7 tabs 12/03/24 Rx mg tablet (Percocet) Allergies Allergy/AdvReac Type Severity Reaction Status Date / Time orange Allergy Severe Anaphylaxis Verified 12/02/24 06:14 amoxicillin Allergy Intermediate skin Verified 12/02/24 06:14 peeled off tongue ibuprofen [From Advil] Allergy Intermediate Hives Verified 12/02/24 06:14 Sulfa (Sulfonamide Allergy Intermediate Hives Verified 12/02/24 06:14 Antibiotics) wheat Allergy Verified 12/03/24 08:03 Past Med/Surg History Problem List (Updated 12/04/24 @ 03:42 by Chalo Mansfield MD) Sepsis (Acute) Fever postop (Acute) Encounter for pre-operative examination Kidney lesion, [place], right IPMN (intraductal papillary mucinous neoplasm) side branch IPMN MRI 01/26/24 Left ureteral stone Lesion of pancreas DEUCE (acute kidney injury) (Acute) Kidney cysts Kidney stone on left side (Acute) Medical History IPMN (intraductal papillary mucinous neoplasm) side branch IPMN MRI 01/26/24 Lesion of pancreas Monitoring Acid reflux Hx of Lyme disease completed antibiotic tx History of kidney stones DEUCE (acute kidney injury) Kidney lesion, [place], right Reason for procedure 12/02/24 Surgical History Hx of colonoscopy History of lithotripsy H/O wisdom tooth extraction History of tonsillectomy History of vasectomy Family History Mother Breast cancer Hypertension Father Colorectal cancer Grandfather (Paternal) Stomach cancer Sister Hypertension Denies family history of Ovarian cancer Prostate cancer Myocardial infarction Lung cancer Social History Smoking Status: Never smoker Second Hand Exposure: No; Do You Dip or Chew Tobacco: No; Hx Alcohol Use: Yes Alcohol type: wine Alcohol Intake Frequency: 4 or More x per/Week Hx Substance Use: No Preferred Language: Portuguese Communication Ability: Effective Visual Impairment: Partially Limited Hearing Ability: Normal 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 Beliefs That Will Affect Care: None marital status: Current Living Situation: Spouse current occupational status: retired How many Children do You have: 4 Feels Safe at Home: Yes Childhood Exposure to Second-Hand Smoke: Yes Diet: regular caffeine: Yes (not regularly ) during the past year weight has: remained stable Dental Care, Regularly: Yes Physical Activity Frequency: 3-4 Times per Week Seatbelt Use: always Sunscreen Use: No Assistive Devices: None Physical Exam Vital Signs Vital Signs - 24 hr 12/03/24 23:14 12/04/24 00:12 12/04/24 00:13 Temperature 37.6 C H Temperature Source Oral Pulse Rate 125 H 123 H 120 H Pulse Rate [Apical] Pulse Rate from SpO2 Sensor Pulse Rhythm Regular Pulse Strength Normal Respiratory Rate 18 16 Respiratory Effort / Characteristics Non-Labored Spontaneous Respiratory Depth Normal Respiratory Pattern Regular Blood Pressure 149/94 H 153/98 H Blood Pressure Mean 112 103 Blood Pressure Position Sitting Pulse Oximetry 93 93 Oxygen Delivery Method Room Air Room Air Sepsis Recent Fever Within 48 Hours Yes Sepsis New/Unexplained Change in Mental Status N/A Sepsis Action Taken by Nursing No Action Required 12/04/24 00:21 12/04/24 00:36 12/04/24 01:51 Temperature 38.4 C H 36.8 C Temperature Source Oral Oral Pulse Rate Pulse Rate [Apical] 121 H Pulse Rate from SpO2 Sensor Pulse Rhythm Pulse Strength Respiratory Rate 22 Respiratory Effort / Characteristics Respiratory Depth Respiratory Pattern Blood Pressure Blood Pressure Mean Blood Pressure Position Pulse Oximetry 97 94 Oxygen Delivery Method Room Air Room Air Sepsis Recent Fever Within 48 Hours Sepsis New/Unexplained Change in Mental Status Sepsis Action Taken by Nursing 12/04/24 02:09 12/04/24 02:33 Temperature Temperature Source Pulse Rate 116 H 110 H Pulse Rate [Apical] Pulse Rate from SpO2 Sensor 117 H 110 H Pulse Rhythm Pulse Strength Respiratory Rate 20 18 Respiratory Effort / Characteristics Respiratory Depth Respiratory Pattern Blood Pressure 155/89 H 152/88 H Blood Pressure Mean 111 109 Blood Pressure Position Pulse Oximetry 94 93 Oxygen Delivery Method Room Air Room Air Sepsis Recent Fever Within 48 Hours Sepsis New/Unexplained Change in Mental Status Sepsis Action Taken by Nursing Physical Exam HENT: Exam performed. - Head: Normocephalic and atraumatic. - Right Ear: External ear normal. No mastoid erythema - Left Ear: External ear normal. No mastoid erythema - Mouth/Throat: The oropharynx is clear and moist. No trismus in the jaw. No dental abscesses or uvula swelling. No oropharyngeal exudate or tonsillar abscesses. EYES: Conjunctivae and EOM are normal. Pupils are equal, round, and reactive to light. Right eye exhibits no discharge. Left eye exhibits no discharge. No scleral icterus. NECK: Normal range of motion. Neck supple. No JVD present. No rigidity. No tracheal deviation and normal range of motion present. CV: Tachycardic rate, regular rhythm, normal heart sounds and intact distal pulses. There is no peripheral edema. Palpable radial pulses bue. PULM/CHEST: Effort normal and breath sounds normal. No respiratory distress. No stridor. He has no wheezes. He has no rales. ABD: The abdomen is soft. Surgical incisions are clean and dry with no surrounding erythema or bleeding. There is diffuse tenderness to palpation. There is no rebound, there is guarding. MUSC/SKEL: Normal range of motion. There is no peripheral edema, tenderness or deformity. NEURO: He is alert and oriented to person, place, and time. He has normal strength. No cranial nerve deficit or sensory deficit. Coordination and gait normal. GCS eye subscore is 4. GCS verbal subscore is 5. GCS motor subscore is 6. Cerebellar tests wnl. Course Course 2330: The patient was evaluated in room B1. A complete history and physical exam was performed Cardiac monitoring: An order was placed for continuous cardiac monitoring. The monitor shows a rate of 120 with sinus tachycardia rhythm interpreted by me Sepsis protocols were initiated. External medical records reviewed. Patient had a robotic assisted right partial nephrectomy performed by Dr. Chao on December 02 2024. Patient was discharged from the hospital earlier today. 0035: Patient febrile. Tylenol and 30 cc/kg normal saline bolus was ordered for the patient. Patient's lactic acid 2.2. Cipro and Flagyl ordered for the patient. Awaiting CT read. 0217: Vital signs stable. Patient's lactic acid normalized with normal saline. Cipro and Flagyl ordered for the patient. I spoke with Dr. Escobedo on-call urology. I read him the CT reports. He states he eats these are common findings status post the surgery that the patient had. He agreed that the patient should be admitted. He recommends admission to the medicine team and states he will see the patient in the morning. Administered Medications Discontinued Medications Sodium Chloride (Nss) 1,000 mls @ 999 mls/hr IV .Q1H1M JEREMIAS Stop: 12/04/24 00:30 Last Infusion: 12/04/24 01:50 Dose: Infused Documented By: Admin: 12/04/24 00:15 Dose: 999 mls/hr Documented By: ANSHUL Acetaminophen (Ofirmev) 1,000 mg in 100 mls @ 400 mls/hr IV NOW STA Stop: 12/03/24 23:54 Last Infusion: 12/04/24 00:38 Dose: Infused Documented By: Admin: 12/04/24 00:15 Dose: 400 mls/hr Documented By: ANSHUL Sodium Chloride (Nss) 500 mls @ 999 mls/hr IV .Q31M ONE Stop: 12/04/24 01:03 Last Infusion: 12/04/24 00:41 Dose: Infused Documented By: Admin: 12/04/24 00:37 Dose: 999 mls/hr Documented By: ANSHUL Sodium Chloride (Nss) 1,000 mls @ 999 mls/hr IV .Q1H1M ONE Stop: 12/04/24 01:33 Last Infusion: 12/04/24 01:50 Dose: Infused Documented By: Admin: 12/04/24 00:37 Dose: 999 mls/hr Documented By: ANSHUL Ciprofloxacin (Cipro / D5w) 400 mg in 200 mls @ 100 mls/hr IV NOW STA; Protocol Stop: 12/04/24 02:37 Last Admin: 12/04/24 01:44 Dose: 100 mls/hr Documented By: VIVIANA Ioversol (Optiray 320 100ml) 94 ml IV ONCE ONE Stop: 12/03/24 23:58 Last Admin: 12/03/24 23:57 Dose: 94 ml Documented By: ANNA Critical Care Time Critical Care Time: Yes Total Critical Care Time: 64 I have personally spent greater than 64 minutes of critical care time in the direct management of this patient. This includes bedside care, interpretation of diagnostic studies, and testing, discussion with consultants, patient, and family members, and other required patient management activities. This 64 minutes is in excess of all separately billable procedures. Medical Decision Making Laboratory Data Attestation: I reviewed the patient's lab results. 12/03/24 23:37 12/03/24 23:37 Lab Results 12/03/24 12/03/24 12/03/24 Range/Units 23:35 23:37 23:43 WBC 20.21 H (4.8-10.8) K/ul RBC 3.26 L (4.70-6.10) M/uL Hgb 10.7 L (14.0-18.0) g/dl POC Hgb 10.5 L (14.0-18.0) g/dl Hct 31.3 L (42.0-52.0) % POC Hct 31 L (42-52) % MCV 96.0 (80.0-100.0) fL MCH 32.8 (25.0-34.0) pg MCHC 34.2 (32.0-36.0) g/dL RDW Std Deviation 42.4 (36.4-46.3) fL RDW Coeff of Zeynep 12.0 (11.5-14.5) % Plt Count 173 (130-400) K/uL MPV 11.1 (9.4-12.4) fL Immature Gran % (Auto) 0.6 % Neut % (Auto) 85.8 % Lymph % (Auto) 5.6 % [place] % (Auto) 7.6 % Eos % (Auto) 0.3 % Baso % (Auto) 0.1 % Neut # (Auto) 17.33 H (1.40-6.50) K/uL Lymph # (Auto) 1.14 L (1.20-3.40) K/uL [place] # (Auto) 1.54 H (0.11-0.59) K/uL Eos # (Auto) 0.06 (0.00-0.50) K/uL Baso # (Auto) 0.02 (0.00-0.20) K/uL Immature Gran # (Auto) 0.12 (0.01-0.20) K/uL PT 10.7 (9.0-12.0) Seconds INR 1.0 (0.9-1.1) APTT 25 (21-31) Seconds PTT Ratio 0.9 VBG pH (7.36-7.41) VBG pCO2 (38-50) mmHg VBG pO2 mmHg VBG HCO3 mmol/L VBG O2 Saturation % VBG Base Excess mEq/L POC Sodium 138 (135-144) mmol/L Sodium 139 (136-145) mmol/L POC Potassium 3.6 (3.3-5.0) mmol/L Potassium 3.6 (3.5-5.1) mmol/L POC Chloride 101 (101-112) mmol/L Chloride 103 (98-107) mmol/L Carbon Dioxide 28 (21-32) mmol/L POC Total CO2 24 (24-31) mmol/L Anion Gap 8 (3-11) POC Anion Gap 17.0 (16-25) mmol/L POC BUN 14 (7-18) mg/dl BUN 16 (6-23) mg/dl Creatinine 1.25 (0.6-1.4) mg/dl POC Creatinine 1.3 (0.6-1.3) mg/dl Est Cr Clr Drug Dosing 57.8 ml/min eGFR 64.30 BUN/Creatinine Ratio 12.8 (10-20) Glucose 121 H (70-99(Fasting)) mg/dl POC Glucose (other) 125 H (70-99) mg/dl Lactate 2.2 H* (0.4-2.0) mmol/L Calcium 8.6 (8.6-10.3) mg/dl POC Ioniz Calcium Serafin 1.15 (1.12-1.32) mmol/l Magnesium 1.9 (1.7-2.4) mg/dl Total Bilirubin 1.2 H (0.2-1.0) mg/dl Direct Bilirubin 0.2 (0-0.2) mg/dl AST 33 (13-39) U/L ALT 25 (7-52) U/L Alkaline Phosphatase 45 (34-104) U/L Troponin I High Sens 10.4 (0-20) pg/ml Total Protein 6.7 (6.0-8.3) gm/dl Albumin 4.0 (3.4-5.0) gm/dl Globulin 2.7 (2.5-4.0) gm/dl Albumin/Globulin Ratio 1.5 (0.9-2) Lipase 19 (11-82) U/L Procalcitonin 0.19 (0-0.5) ng/ml Urine Color Urine Appearance (Clear) Urine pH (4.5-7.5) Ur Specific [place] (1.000-1.030) Urine Protein (Negative) Urine Glucose (UA) (Negative) Urine Ketones (Negative) Urine Blood (Negative) Urine Nitrite (Negative) Urine Bilirubin (Negative) Urine Urobilinogen (Negative) Ur Leukocyte Esterase (Negative) Urine WBC (Auto) (0-5) /hpf Urine RBC (Auto) (0-2) /hpf U Hyaline Cast (Auto) (0-2) /lpf U Epithel Cells (Auto) (0-2) /hpf Urine Bacteria (Auto) (None Seen) Adenovirus (PCR) Not Detected (NotDetected) B. pertussis DNA (PCR) Not Detected (NotDetected) B.parapertussis DNA PCR Not Detected (NotDetected) C. pneumoniae DNA (PCR) Not Detected (NotDetected) Coronavirus OC43 (PCR) Not Detected (NotDetected) Coronavirus HKU1 (PCR) Not Detected (NotDetected) Coronavirus 229E (PCR) Not Detected (NotDetected) SARS-CoV-2 (PCR) Not Detected (NotDetected) Coronavirus NL63 (PCR) Not Detected (NotDetected) Human Metapneumovir PCR Not Detected (NotDetected) Influenza Type A (PCR) Not Detected (NotDetected) Influenza Type B (PCR) Not Detected (NotDetected) M. pneumoniae (PCR) Not Detected (NotDetected) Parainfluenza 1 (PCR) Not Detected (NotDetected) Parainfluenza 2 (PCR) Not Detected (NotDetected) Parainfluenza 3 (PCR) Not Detected (NotDetected) Parainfluenza 4 (PCR) Not Detected (NotDetected) RSV (PCR) Not Detected (NotDetected) Entero/Rhino (PCR) Not Detected (NotDetected) Blood Type Antibody Screen 12/03/24 12/04/24 12/04/24 Range/Units 23:50 00:00 01:45 WBC (4.8-10.8) K/ul RBC (4.70-6.10) M/uL Hgb (14.0-18.0) g/dl POC Hgb (14.0-18.0) g/dl Hct (42.0-52.0) % POC Hct (42-52) % MCV (80.0-100.0) fL MCH (25.0-34.0) pg MCHC (32.0-36.0) g/dL RDW Std Deviation (36.4-46.3) fL RDW Coeff of Zeynep (11.5-14.5) % Plt Count (130-400) K/uL MPV (9.4-12.4) fL Immature Gran % (Auto) % Neut % (Auto) % Lymph % (Auto) % [place] % (Auto) % Eos % (Auto) % Baso % (Auto) % Neut # (Auto) (1.40-6.50) K/uL Lymph # (Auto) (1.20-3.40) K/uL [place] # (Auto) (0.11-0.59) K/uL Eos # (Auto) (0.00-0.50) K/uL Baso # (Auto) (0.00-0.20) K/uL Immature Gran # (Auto) (0.01-0.20) K/uL PT (9.0-12.0) Seconds INR (0.9-1.1) APTT (21-31) Seconds PTT Ratio [facility] pH 7.43 H (7.36-7.41) VBG pCO2 42 (38-50) mmHg VBG pO2 23 mmHg VBG HCO3 28 mmol/L VBG O2 Saturation < 60.0 % VBG Base Excess 3.2 mEq/L POC Sodium (135-144) mmol/L Sodium (136-145) mmol/L POC Potassium (3.3-5.0) mmol/L Potassium (3.5-5.1) mmol/L POC Chloride (101-112) mmol/L Chloride (98-107) mmol/L Carbon Dioxide (21-32) mmol/L POC Total CO2 (24-31) mmol/L Anion Gap (3-11) POC Anion Gap (16-25) mmol/L POC BUN (7-18) mg/dl BUN (6-23) mg/dl Creatinine (0.6-1.4) mg/dl POC Creatinine (0.6-1.3) mg/dl Est Cr Clr Drug Dosing ml/min eGFR BUN/Creatinine Ratio (10-20) Glucose (70-99(Fasting)) mg/dl POC Glucose (other) (70-99) mg/dl Lactate 1.3 (0.4-2.0) mmol/L Calcium (8.6-10.3) mg/dl POC Ioniz Calcium Serafin (1.12-1.32) mmol/l Magnesium (1.7-2.4) mg/dl Total Bilirubin (0.2-1.0) mg/dl Direct Bilirubin (0-0.2) mg/dl AST (13-39) U/L ALT (7-52) U/L Alkaline Phosphatase (34-104) U/L Troponin I High Sens (0-20) pg/ml Total Protein (6.0-8.3) gm/dl Albumin (3.4-5.0) gm/dl Globulin (2.5-4.0) gm/dl Albumin/Globulin Ratio (0.9-2) Lipase (11-82) U/L Procalcitonin (0-0.5) ng/ml Urine Color Yellow Urine Appearance Clear (Clear) Urine pH 6.5 (4.5-7.5) Ur Specific [place] 1.028 (1.000-1.030) Urine Protein Trace H (Negative) Urine Glucose (UA) Negative (Negative) Urine Ketones Negative (Negative) Urine Blood 1+ H (Negative) Urine Nitrite Negative (Negative) Urine Bilirubin Negative (Negative) Urine Urobilinogen Negative (Negative) Ur Leukocyte Esterase Negative (Negative) Urine WBC (Auto) 0-5 (0-5) /hpf Urine RBC (Auto) 6-10 H (0-2) /hpf U Hyaline Cast (Auto) 0-2 (0-2) /lpf U Epithel Cells (Auto) 0-2 (0-2) /hpf Urine Bacteria (Auto) None Seen (None Seen) Adenovirus (PCR) (NotDetected) B. pertussis DNA (PCR) (NotDetected) B.parapertussis DNA PCR (NotDetected) C. pneumoniae DNA (PCR) (NotDetected) Coronavirus OC43 (PCR) (NotDetected) Coronavirus HKU1 (PCR) (NotDetected) Coronavirus 229E (PCR) (NotDetected) SARS-CoV-2 (PCR) (NotDetected) Coronavirus NL63 (PCR) (NotDetected) Human Metapneumovir PCR (NotDetected) Influenza Type A (PCR) (NotDetected) Influenza Type B (PCR) (NotDetected) M. pneumoniae (PCR) (NotDetected) Parainfluenza 1 (PCR) (NotDetected) Parainfluenza 2 (PCR) (NotDetected) Parainfluenza 3 (PCR) (NotDetected) Parainfluenza 4 (PCR) (NotDetected) RSV (PCR) (NotDetected) Entero/Rhino (PCR) (NotDetected) Blood Type AB Positive Antibody Screen NEGATIVE Imaging Data Attestation: I personally reviewed and interpreted this imaging study as follows: My Impression: Chest x-ray negative. Airway clear. No pneumothorax. No consolidation. No cardiomegaly or cephalization.. No free air under the diaphragm. No fractures of the skeletal structures. Radiologist's Impression: Chest X-Ray 12/03/24 23:24 Exam(s): XR CXR 1 VIEW EXAM: XR Chest, 1 View CLINICAL HISTORY: Reason for exam: Sepsis. TECHNIQUE: Frontal views of the chest. COMPARISON: No relevant prior studies available. FINDINGS: There is a poor inspiratory effort. Lungs: There are linear densities at the lung bases.. No consolidation. Pleural space: No pleural effusion is seen. No pneumothorax. Heart: Heart does not appear enlarged.. Mediastinum: There is uncoiling of thoracic aorta.. Bones/joints: There are degenerative changes in the spine.. IMPRESSION: Poor inspiratory effort. There are bibasilar areas of scarring and/or atelectasis. Electronically signed by: Ranjeet Frost MD 12/04/24 00:43 AM Abdomen/Pelvis CT 12/03/24 23:40 EXAM: CT abd pelvis IV con only CLINICAL HISTORY: post op abd pain TECHNIQUE: Contiguous axial images were obtained from the level of the diaphragm to the pubic symphysis with intravenous contrast. Coronal and sagittal reconstructions were likewise performed and indicated to increase the sensitivity for detecting clinically relevant pathology. If IV contrast material had not been administered, the likelihood of detecting abnormalities relevant to the patient's condition would have been substantially decreased. CT scan was performed according to ALARA (as low as reasonable achievable). COMPARISON: None. FINDINGS: The visualized lung bases shows multiple atelectatic bands. Multiple streaks of air are noted involving right anterior abdominal wall- possibility of postoperative changes. Multiple free air foci are also noted in the retroperitoneum and beneath the anterior abdominal wall- appears to be due to recent postoperative changes. Right kidney appears mildly bulky in size and shows ill-defined hypoechoic areas in the mid and lower pole region with mild cortical irregularity and moderate adjacent fluid collection and fat stranding The left kidney appears normal in size shape and attenuation. The liver is normal in size and attenuation. Tiny hypodense lesions seen in both right and left lobe of liver. There is no intra or extrahepatic biliary ductal dilatation. Hepatic vasculature is patent. The gallbladder is present. The spleen, pancreas, and adrenal glands are unremarkable. The ureters are normal in caliber and no ureteral calculi are seen. The bladder is normal in contour. Pelvic viscera are unremarkable. No focal or diffuse bowel wall thickening or evidence of bowel obstruction is identified. No evidence of inflamed appendix. Abdominal and pelvic vasculature is patent. No adenopathy or fluid collections are seen. No aggressive appearing osseous lesions are identified. IMPRESSION: 1. Multiple streaks of air are noted involving right anterior abdominal wall- possibility of postoperative changes. 2. Right kidney appears mildly bulky in size and shows ill-defined hypoechoic areas in the mid and lower pole region with mild cortical irregularity and moderate adjacent fluid collection and fat stranding.- possibility of recent infection/recent intervention- kindly correlate with clinical profile. 3. Multiple free air foci are also noted in the retroperitoneum and beneath the anterior abdominal wall- appears to be due to recent postoperative changes. 4. Tiny hypodense lesions seen in both right and left lobe of liver- advised ultrasound correlation. Electronically signed by Adrian Medley 12-04-2024 01:53 AM ECG Data Attestation: I personally reviewed and interpreted this ECG as follows: Rate (beats per minute): 120 Rhythm: + sinus tachycardia ECG Intervals/blocks: + Normal NM and + Normal QT-c ECG ST segments: + Normal ST segments Additional Comments: QRS 72 MDM Narrative 2330: The patient was evaluated in room B1. A complete history and physical exam was performed Cardiac monitoring: An order was placed for continuous cardiac monitoring. The monitor shows a rate of 120 with sinus tachycardia rhythm interpreted by me Sepsis protocols were initiated. External medical records reviewed. Patient had a robotic assisted right partial nephrectomy performed by Dr. Chao on December 02 2024. Patient was discharged from the hospital earlier today. 0035: Patient febrile. Tylenol and 30 cc/kg normal saline bolus was ordered for the patient. Patient's lactic acid 2.2. Cipro and Flagyl ordered for the patient. Awaiting CT read. 0217: Vital signs stable. Patient's lactic acid normalized with normal saline. Cipro and Flagyl ordered for the patient. I spoke with Dr. Escobedo on-call urology. I read him the CT reports. He states he eats these are common findings status post the surgery that the patient had. He agreed that the patient should be admitted. He recommends admission to the medicine team and states he will see the patient in the morning. Impression & Plan Fever postop, Sepsis Discharge Plan Visit Data Chief Complaint: Abdominal Pain Stated Complaint: FEVER, CHILLS, NAUSEA, ABD PAIN ED Provider: Chalo Mansfield Discharge Problem: Fever postop, Sepsis Patient Disposition: Admitted As Inpatient Forms Stand Alone Forms: My [facility] Prescriptions Prescriptions: No Action cholecalciferol (vitamin D3) 50 mcg (2,000 unit) capsule 50 mcg PO DAILY cetirizine [Zyrtec] 10 mg tablet 10 mg PO DAILY vitamin E (dl, acetate) 180 mg (400 unit) capsule 180 mg PO DAILY vitamin B complex Capsule 1 cap PO DAILY oxycodone-acetaminophen [Percocet] 5-325 mg tablet 1 tab PO TID PRN (Reason: pain) Qty: 7 0RF cephalexin 500 mg capsule 500 mg PO BID 7 Days Qty: 14 0RF Referrals Referrals: Kash Woods DO [Primary Care Provider] - Discharge Problem: Sepsis Qualifiers: Sepsis type: sepsis due to unspecified organism Sepsis acute organ dysfunction status: unspecified Qualified Code(s): A41.9 - Sepsis, unspecified organism
[2024-12-04 00:48] LABS: Troponin I High Sensitivity 10.4 pg/ml (0-20)
[2024-12-04 00:49] LABS: Appearance Urine Clear (Clear); Bacteria Urine Automated None Seen (None Seen); Bilirubin Urine Negative (Negative); Blood Urine 1+ (Negative); Cast Urine Automated 0-2 /lpf (0-2); Color Urine Yellow; Epithelial Cell Urine Auto 0-2 /hpf (0-2); Glucose Urine UA Negative (Negative); Ketones Urine Negative (Negative); Leukocyte Esterase Urine Negative (Negative); Nitrite Urine Negative (Negative); Protein Urine Trace (Negative); Specific Gravity Urine 1.028 (1.000-1.030); Urobilinogen Urine Negative (Negative); WBC Urine Automated 0-5 /hpf (0-5); pH Urine 6.5 (4.5-7.5)
[2024-12-04 00:53] LABS: Partial Thromboplastin Ratio 0.9; Partial Thromboplastin Time 25 Seconds (21-31); Prothrombin Time 10.7 Seconds (9.0-12.0)
[2024-12-04 01:09] LABS: Adenovirus PCR Not Detected (NotDetected); Bordetella parapertussis PCR Not Detected (NotDetected); Bordetella pertussis PCR Not Detected (NotDetected); Chlamydia pneumoniae PCR Not Detected (NotDetected); Coronavirus 229E PCR Not Detected (NotDetected); Coronavirus CoV-2 (COVID19)PCR Not Detected (NotDetected); Coronavirus HKU1 PCR Not Detected (NotDetected); Coronavirus NL63 PCR Not Detected (NotDetected); Coronavirus OC43PCR Not Detected (NotDetected); Human Metapneumovirus PCR Not Detected (NotDetected); Influenza A PCR Not Detected (NotDetected); Influenza B PCR Not Detected (NotDetected); Mycoplasma pneumoniae PCR Not Detected (NotDetected); Parainfluenza Virus 1 PCR Not Detected (NotDetected); Parainfluenza Virus 2 PCR Not Detected (NotDetected); Parainfluenza Virus 3 PCR Not Detected (NotDetected); Parainfluenza Virus 4 PCR Not Detected (NotDetected); Respiratory Syncytial VirusPCR Not Detected (NotDetected); Rhinovirus/Enterovirus PCR Not Detected (NotDetected)
[2024-12-04] MEDS: CIPROFLOXACIN / D5W 400 MG/200 ML BAG IV STA (01:44)
--- NOTE | 2024-12-04 01:54 | CT Scan Report ---
EXAM: CT abd pelvis IV con only CLINICAL HISTORY: post op abd pain TECHNIQUE: Contiguous axial images were obtained from the level of the diaphragm to the pubic symphysis with intravenous contrast. Coronal and sagittal reconstructions were likewise performed and indicated to increase the sensitivity for detecting clinically relevant pathology. If IV contrast material had not been administered, the likelihood of detecting abnormalities relevant to the patient's condition would have been substantially decreased. CT scan was performed according to ALARA (as low as reasonable achievable). COMPARISON: None. FINDINGS: The visualized lung bases shows multiple atelectatic bands. Multiple streaks of air are noted involving right anterior abdominal wall- possibility of postoperative changes. Multiple free air foci are also noted in the retroperitoneum and beneath the anterior abdominal wall- appears to be due to recent postoperative changes. Right kidney appears mildly bulky in size and shows ill-defined hypoechoic areas in the mid and lower pole region with mild cortical irregularity and moderate adjacent fluid collection and fat stranding The left kidney appears normal in size shape and attenuation. The liver is normal in size and attenuation. Tiny hypodense lesions seen in both right and left lobe of liver. There is no intra or extrahepatic biliary ductal dilatation. Hepatic vasculature is patent. The gallbladder is present. The spleen, pancreas, and adrenal glands are unremarkable. The ureters are normal in caliber and no ureteral calculi are seen. The bladder is normal in contour. Pelvic viscera are unremarkable. No focal or diffuse bowel wall thickening or evidence of bowel obstruction is identified. No evidence of inflamed appendix. Abdominal and pelvic vasculature is patent. No adenopathy or fluid collections are seen. No aggressive appearing osseous lesions are identified. IMPRESSION: 1. Multiple streaks of air are noted involving right anterior abdominal wall- possibility of postoperative changes. 2. Right kidney appears mildly bulky in size and shows ill-defined hypoechoic areas in the mid and lower pole region with mild cortical irregularity and moderate adjacent fluid collection and fat stranding.- possibility of recent infection/recent intervention- kindly correlate with clinical profile. 3. Multiple free air foci are also noted in the retroperitoneum and beneath the anterior abdominal wall- appears to be due to recent postoperative changes. 4. Tiny hypodense lesions seen in both right and left lobe of liver- advised ultrasound correlation. Electronically signed by Adrian Medley 12-04-2024 01:53 AM
--- NOTE | 2024-12-04 02:33 | History & Physical Report ---
Date of Service December 04, 2024 Assessment & Plan (1) Sepsis: (2) H/O partial nephrectomy: (3) Fever postop: (4) Anemia: (5) Lesion of liver: Plan Patient is a 64-year-old male with a past medical history of IPMN hyperlipidemia and 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. Patient underwent right partial nephrectomy 12/02 with urology, Dr. Chao. Patient was discharged home 12/03 on Keflex and Percocet, in which she did not yet take. At home patient developed fever, chills, pain, and nausea. Patient returned to the ED and was found to be septic with a white count of 20.21, HR 121, lactate 2.2. He is being admitted for sepsis and to have urology evaluation. #sepsis/post op UTI/partial nephrectomy SP partial right nephrectomy 12/02 for suspected malignancy - pathology pending AP CT showed right kidney appears mildly bulky in size with ill-defined hypo- hypoechoic areas in mid and lower pole region with mild cortical regularity and fluid collection (possibility of recent infection/recent intervention), postop free air changes noted WBC 20.21 (however chronically elevated), tachycardic (125) on admission afebrile and BP/MAP stable on admission lactate 2.2 -> 1.3 after IV fluids UA does not appear infectious, trace protein, 1+ blood, 6-10 RBC Urine cultures ordered Blood cultures pending continue IV antibiotics with ciprofloxacin and Flagyl (note Alarcon-Alex reaction with penicillins and sulfa antibiotics) Sepsis fluid bolus for ideal body weight = 2100 - Sepsis fluid bolus of 2.5L NSS given in ED continue IVF with LR at 100 mL/hour pain control with IV Tylenol and IV morphine 2/4 for breakthrough pain Urology consulted #anemia Appears ABLA from recent procedure Baseline Hgb 14.5, currently 10.7 asymptomatic Trend CBC #lesions of liver AP CT showed tiny hypodense lesions in both left and right lobe of liver total bili 1.2, otherwise LFTs WNL Follow-up with PCP and recommend ultrasound in outpatient setting VTE ppx: SCDs Diet: regular Dispo: PCU with sepsis Admission and Anticipated Discharge Date Admission Date: 12/04/24 History of Present Illness Chief Complaint: abd pain Primary Care Provider: Kash Woods DO Patient is a 64-year-old male with a past medical history of IPMN hyperlipidemia and 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. Patient underwent right partial nephrectomy 12/02 with urology, Dr. Chao. Patient was discharged home 12/03 on Keflex and Percocet, in which she did not yet take. At home patient developed fever, chills, pain, and nausea. Patient returned to the ED and was found to be septic with a white count of 20.21, HR 121, lactate 2.2. He is being admitted for sepsis and to have urology evaluation. Patient seen at bedside with his present. He stated he went home and developed fever, chills, abdominal pain. He stated when he was here they did have difficulty removing his STU drain and he does not know if it is related to his current infection. He also endorses nausea at home however currently denies nausea. He had bone broth with rice for dinner but has had poor p.o. intake today. He also endorses dyspnea. He did not take any of his antibiotics at home yet. He denies any urinary symptoms, denies dysuria, difficulty urinating, hematuria. He denies any chest pain. He does not use nicotine products or drink alcohol. He denies any significant past medical history, he does not take any scheduled home medications, only some vitamins. He wishes to be full code. Patient stated he has had Alarcon-Alex reaction to amoxicillin and sulfa antibiotics. He also is allergic to ibuprofen. Allergies Allergy/AdvReac Type Severity Reaction Status Date / Time orange Allergy Severe Anaphylaxis Verified 12/02/24 06:14 amoxicillin Allergy Intermediate skin Verified 12/02/24 06:14 peeled off tongue ibuprofen [From Advil] Allergy Intermediate Hives Verified 12/02/24 06:14 Sulfa (Sulfonamide Allergy Intermediate Hives Verified 12/02/24 06:14 Antibiotics) wheat Allergy Verified 12/03/24 08:03 Home Medications Medication Instructions Recorded Confirmed Type cholecalciferol (vitamin D3) 50 50 mcg PO DAILY 02/03/24 12/02/24 History mcg (2,000 unit) capsule vitamin E (dl, acetate) 180 mg 180 mg PO DAILY 02/03/24 12/02/24 History (400 unit) capsule cetirizine 10 mg tablet (Zyrtec) 10 mg PO DAILY 11/10/24 12/02/24 History vitamin B complex 1 cap PO DAILY 11/19/24 12/02/24 History cephalexin 500 mg capsule 500 mg PO BID 7 days #14 caps 12/03/24 Rx oxycodone-acetaminophen 5 mg-325 1 tab PO TID PRN pain #7 tabs 12/03/24 Rx mg tablet (Percocet) Past Med/Surg History Problem List (Updated 12/04/24 @ 05:44 by Betzy Blanco PA-C) H/O partial nephrectomy Lesion of liver Anemia Sepsis (Acute) Fever postop (Acute) Encounter for pre-operative examination Kidney lesion, [place], right IPMN (intraductal papillary mucinous neoplasm) side branch IPMN MRI 01/26/24 Left ureteral stone Lesion of pancreas DEUCE (acute kidney injury) (Acute) Kidney cysts Kidney stone on left side (Acute) Medical History (Updated 12/04/24 @ 05:44 by Betzy Blanco PA-C) IPMN (intraductal papillary mucinous neoplasm) side branch IPMN MRI 01/26/24 Lesion of pancreas Monitoring Acid reflux Hx of Lyme disease completed antibiotic tx History of kidney stones DEUCE (acute kidney injury) Kidney lesion, [place], right Reason for procedure 12/02/24 Surgical History (Updated 12/04/24 @ 09:00 by Uriah Escobedo MD) Hx of colonoscopy History of lithotripsy H/O wisdom tooth extraction History of tonsillectomy History of vasectomy Family History Mother Breast cancer Hypertension Father Colorectal cancer Grandfather (Paternal) Stomach cancer Sister Hypertension Denies family history of Ovarian cancer Prostate cancer Myocardial infarction Lung cancer Social History Smoking Status: Never smoker Second Hand Exposure: No; Do You Dip or Chew Tobacco: No; Tobacco Cessation Education Requested by Patient: No Hx Alcohol Use: Yes Alcohol type: wine Alcohol Intake Frequency: 4 or More x per/Week Hx Substance Use: No Preferred Language: Mongolian Communication Ability: Effective Visual Impairment: Partially Limited Hearing Ability: Normal Restaurant Greeter Required: No Beliefs That Will Affect Care: None marital status: Current Living Situation: Spouse current occupational status: retired How many Children do You have: 4 Other Information That Helps Us Care for You: No Feels Safe at Home: Yes Safety Concerns: Feels Safe At This Time Childhood Exposure to Second-Hand Smoke: Yes Diet: regular caffeine: Yes (not regularly ) during the past year weight has: remained stable Dental Care, Regularly: Yes Physical Activity Frequency: 3-4 Times per Week Seatbelt Use: always Sunscreen Use: No Assistive Devices: None Review of Systems Review of Systems: see HPI Physical Exam Physical Exam: The patient is awake, alert and oriented 3, Pale, diaphoretic, appears ill. HEENT- EOMI, mucous membranes Dry. Hearing grossly intact. Heart-normal S1 and S2. No murmurs, rubs or gallops. Lungs-clear bilaterally, no respiratory distress, no accessory muscle use. Abdomen-normal bowel sounds and soft. No ascites noted. Non-tender. Extremities- no clubbing, cyanosis, or edema. Rheumatologic-normal range of motion. Psychiatric-normal affect. Results & Data Results & Data Vital Signs (Past 12 Hours) Vital Signs Temp Pulse Pulse Resp BP Pulse Ox O2 Del Method 12/04/24 01:51 36.8 C 12/04/24 00:36 38.4 C H 121 H 22 94 Room Air 12/04/24 00:21 97 Room Air 12/04/24 00:13 120 H 16 153/98 H 93 Room Air 12/04/24 00:12 123 H 12/03/24 23:14 37.6 C H 125 H 18 149/94 H 93 Room Air Laboratory Results Reviewed CBC, PT/INR, VBG, CMP, Pro-Oscar, lactate, lipase, bio fire, UA, troponin, mag Diagnostic Findings reviewed ap ct and cxr ECG Additional Comments: sinus tachy hr 120 Code Status & VTE Plan Code Status full VTE Prophylaxis Plan VTE Prophylaxis will be ordered: Yes Supervising Physician Co-Signing Physician Notes Attending addendum: I have physically seen this patient, have supervised the LIBBY's activities, and agree with the H&P unless as otherwise noted. Assessment and Plan: The patient is a 64-year-old male past medical history including IPMN, hyperlipidemia, 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. He is status post right partial nephrectomy on 12/02 with urology. He was discharged to home on 12/03 on Keflex and Percocet, which she had yet to take. At home he developed a fever, chills, pain and nausea, and thus presents to the ED for assessment, with concerns regarding sepsis, and was then referred for evaluation to the [place] [facility] hospitalist service for admission #Sepsis due to urologic source status post partial nephrectomy for presumed renal cell cancer- Follow urine culture sensitivity CT scan abdomen pelvis shows right kidney. Mildly bulky in size and ill-defined hypo-hypoechoic areas in the mid and lower pole region with mild cortical irregularity and fluid collection/possibly of recent infection/recent intervention, postop free air changes noted C20.21 And heart rate increased to 125 suggesting sepsis 92.2 with follow-up 1.3 after IV fluid resuscitation Follow urine cultures and blood cultures as noted Empiric ceftriaxone 40 mg IV every 12 hours and Flagyl 500 mg IV every 8 hours- of note, history of Alarcon-Alex reaction to penicillins and sulfa ant ibiotics Status post NSS 2.5 L normal saline bolus LR for rehydration at 100 mL/h x 1 additional liter Acetaminophen 1 g IV every 8 hours as needed for mild pain or fever Morphine sulfate 2 mg IV as needed for moderate pain Morphine sulfate 4 mg IV every 4 hours needed for severe pain Consult urology Remaining orders and notations as noted PG Care Time/CCT Total # of Minutes Spent Total Time Spent with Patient: Total time spent is greater than 50% in coordination of care (as documented) at patient's floor/unit and/or counseling patient: Coding Level of Care Code 29729 INT INP/OBS CARE MIN Diagnoses Sepsis A41.9 Sepsis acute organ dysfunction status: unspecified Sepsis type: sepsis due to unspecified organism H/O partial nephrectomy Z90.5 Fever postop R50.82 Anemia D64.9 Lesion of liver K76.9 (1) Sepsis Sepsis acute organ dysfunction status: unspecified Sepsis type: sepsis due to unspecified organism Qualified Code(s): A41.9 - Sepsis, unspecified organism
[2024-12-04] MEDS ORDERED: MoRPHine SULFATE 2 MG/ML CARP IV PRN (02:55)
[2024-12-04] MEDS ORDERED: MoRPHine SULFATE 4 MG/ML 1 ML CARP\\VIAL IV PRN (02:55)
[2024-12-04] MEDS: LACTATED RINGER'S 1,000 ML IV SCH (03:39)
[2024-12-04] MEDS: metroNIDAZOLE 500 MG/100 ML BAG IV STA (03:39)
[2024-12-04] MEDS ORDERED: ONDANSETRON INJ 2 MG/ML 2 ML VIAL IV PRN (04:28)
[2024-12-04] MEDS: ACETAMINOPHEN 1,000 MG/100 ML VIAL IV PRN (05:26)
--- NOTE | 2024-12-04 08:17 | Urology Consultation ---
Date of Consultation December 04, 2024 Assessment & Plan (1) H/O partial nephrectomy: (2) Fever postop: Plan 64-year-old male with a history of a right renal mass who status post robotic laparoscopic right partial nephrectomy on 12/02/2024. He was discharged the following day after his drain and catheter were removed. Patient then reported fevers at home and came back into the emergency department. I suspect this is a combination of dehydration and atelectasis given his labs and his chest x-ray. Reviewed his CT scan which is expected given recent partial nephrectomy Although I do not suspect a true infection, not unreasonable to continue antibiotics while hospitalized I have ordered an incentive spirometer and advised the patient to ambulate is much as possible Regular diet No urologic intervention necessary Follow-up labs and cultures Anticipate if patient continues to improve, could potentially be discharged home tomorrow assuming he is feeling well enough to go home Appreciate medicine's assistance Urology to follow History of Present Illness Attending Physician: Didier Coleman MD History of Present Illness 64-year-old male with a history of a right renal mass who status post robotic laparoscopic right partial nephrectomy on 12/02/2024. He was discharged the following day after his drain and catheter were removed. Patient then reported fevers at home and came back into the emergency department. He initially came in with a heart rate in the 120s which is decreased to low 100s. He did have a temperature of 38.4 earlier this morning but is currently afebrile. Initial labs showed a leukocytosis of 20.2, hemoglobin of 10.7 and creatinine of 1.25. Lactate was initially 2.2 and repeat check was 1.3. Urinalysis showed microscopic hematuria but otherwise negative. Chest x-ray was performed which showed poor inspiratory effort and bibasilar areas of suspected atelectasis. A CT scan of the abdomen and pelvis was performed which shows stranding and small amount of fluid around the right kidney with small foci of air which is expected since he just underwent a partial nephrectomy. He is currently on ciprofloxacin and metronidazole given his allergies to several antibiotics. Labs this morning show a WBC of 18 and Hgbof 9.2. He reports feeling better today and his started passing gas. Allergies Allergy/AdvReac Type Severity Reaction Status Date / Time orange Allergy Severe Anaphylaxis Verified 12/02/24 06:14 amoxicillin Allergy Intermediate skin Verified 12/02/24 06:14 peeled off tongue ibuprofen [From Advil] Allergy Intermediate Hives Verified 12/02/24 06:14 Sulfa (Sulfonamide Allergy Intermediate Hives Verified 12/02/24 06:14 Antibiotics) wheat Allergy Verified 12/03/24 08:03 Home Medications Medication Instructions Recorded Confirmed Type cholecalciferol (vitamin D3) 50 50 mcg PO DAILY 02/03/24 12/02/24 History mcg (2,000 unit) capsule vitamin E (dl, acetate) 180 mg 180 mg PO DAILY 02/03/24 12/02/24 History (400 unit) capsule cetirizine 10 mg tablet (Zyrtec) 10 mg PO DAILY 11/10/24 12/02/24 History vitamin B complex 1 cap PO DAILY 11/19/24 12/02/24 History cephalexin 500 mg capsule 500 mg PO BID 7 days #14 caps 12/03/24 Rx oxycodone-acetaminophen 5 mg-325 1 tab PO TID PRN pain #7 tabs 12/03/24 Rx mg tablet (Percocet) Patient History Medical History (Updated 12/04/24 @ 05:44 by Betzy Blanco PA-C) IPMN (intraductal papillary mucinous neoplasm) side branch IPMN MRI 01/26/24 Lesion of pancreas Monitoring Acid reflux Hx of Lyme disease completed antibiotic tx History of kidney stones DEUCE (acute kidney injury) Kidney lesion, [place], right Reason for procedure 12/02/24 Surgical History (Updated 12/04/24 @ 09:00 by Uriah Escobedo MD) Hx of colonoscopy History of lithotripsy H/O wisdom tooth extraction History of tonsillectomy History of vasectomy Family History Mother Breast cancer Hypertension Father Colorectal cancer Grandfather (Paternal) Stomach cancer Sister Hypertension Denies family history of Ovarian cancer Prostate cancer Myocardial infarction Lung cancer Social History Smoking Status: Never smoker Second Hand Exposure: No; Do You Dip or Chew Tobacco: No; Tobacco Cessation Education Requested by Patient: No Hx Alcohol Use: Yes Alcohol type: wine Alcohol Intake Frequency: 4 or More x per/Week Hx Substance Use: No Preferred Language: Cook Islander Communication Ability: Effective Visual Impairment: Partially Limited Hearing Ability: Normal Emergency Operator Required: No Beliefs That Will Affect Care: None marital status: Current Living Situation: Spouse current occupational status: retired How many Children do You have: 4 Other Information That Helps Us Care for You: No Feels Safe at Home: Yes Safety Concerns: Feels Safe At This Time Childhood Exposure to Second-Hand Smoke: Yes Diet: regular caffeine: Yes (not regularly ) during the past year weight has: remained stable Dental Care, Regularly: Yes Physical Activity Frequency: 3-4 Times per Week Seatbelt Use: always Sunscreen Use: No Assistive Devices: None Physical Exam Physical Exam: General: Alert and oriented, no acute distress HEENT: Normocephalic, mucous membranes moist Pulmonary: Nonlabored respirations Abdomen: Soft, appropriately tender, mildly distended. Incisions clean dry and intact. Extremities: Moves all 4 spontaneously Neuro: No gross deficits Skin: Warm, dry, no rashes noted Results & Data Vital Signs (Past 12 Hours) Vital Signs Temp Pulse Pulse Resp BP BP Pulse Ox 12/04/24 05:39 12/04/24 04:28 37.3 C 103 H 16 129/77 94 12/04/24 04:24 103 H 12/04/24 03:39 102 H 16 95 12/04/24 02:33 110 H 18 152/88 H 93 12/04/24 02:09 116 H 20 155/89 H 94 12/04/24 01:51 36.8 C 12/04/24 00:36 38.4 C H 121 H 22 94 12/04/24 00:21 97 12/04/24 00:13 120 H 16 153/98 H 93 12/04/24 00:12 123 H 12/03/24 23:14 37.6 C H 125 H 18 149/94 H 93 O2 Del Method 12/04/24 05:39 Room Air 12/04/24 04:28 Room Air 12/04/24 04:24 12/04/24 03:39 Room Air 12/04/24 02:33 Room Air 12/04/24 02:09 Room Air 12/04/24 01:51 12/04/24 00:36 Room Air 12/04/24 00:21 Room Air 12/04/24 00:13 Room Air 12/04/24 00:12 12/03/24 23:14 Room Air PG Care Time/CCT Total # of Minutes Spent Total Time Spent with Patient: Total time spent is greater than 50% in coordination of care (as documented) at patient's floor/unit and/or counseling patient: Coding Level of Care Code 57898 IN/OBS CONSULT LVL 3,45M Diagnoses H/O partial nephrectomy Z90.5 Fever postop R50.82
[2024-12-04 08:47] LABS: Basophils # (auto) 0.04 K/uL (0.00-0.20); Basophils % (auto) 0.2 %; Eosinophils # (auto) 0.08 K/uL (0.00-0.50); Eosinophils % (auto) 0.4 %; Hematocrit (blood only) 26.7 % (42.0-52.0); Hemoglobin 9.2 g/dl (14.0-18.0); Immature Granulocytes # (auto) 0.13 K/uL (0.01-0.20); Immature Granulocytes % (auto) 0.7 %; Lymphocytes # (auto) 1.49 K/uL (1.20-3.40); Lymphocytes % (auto) 8.1 %; Mean Corpuscular Hemoglobin 32.5 pg (25.0-34.0); Mean Corpuscular Hgb Conc 34.5 g/dL (32.0-36.0); Mean Corpuscular Volume 94.3 fL (80.0-100.0); Mean Platelet Volume 11.1 fL (9.4-12.4); Monocytes # (auto) 1.56 K/uL (0.11-0.59); Monocytes % (auto) 8.5 %; Neutrophils # (auto) 15.12 K/uL (1.40-6.50); Neutrophils % (auto) 82.1 %; Platelet Count 154 K/uL (130-400); RDW Standard Deviation 41.6 fL (36.4-46.3); Red Blood Count 2.83 M/uL (4.70-6.10); White Blood Count 18.42 K/ul (4.8-10.8)
[2024-12-04 09:01] LABS: BUN Creatinine Ratio 11.1 (10-20); Calcium 8.3 mg/dl (8.6-10.3); Creatinine Clr Calc Pharmacy 66.9 ml/min; Magnesium 1.8 mg/dl (1.7-2.4); Potassium 3.6 mmol/L (3.5-5.1)
[2024-12-04] MEDS: metroNIDAZOLE 500 MG/100 ML BAG IV SCH (11:34)
--- NOTE | 2024-12-04 12:27 | Hospitalist Progress Note ---
Date of Service December 04, 2024 Assessment & Plan (1) Sepsis: Plan: concern for (2) H/O partial nephrectomy: Plan: right - 12/02/24 - by Dr Chao - [facility] due to concern for RCC path pending (3) Fever postop: Plan: Tm 38.4 at [facility] on 12/04/24 none since see below (4) Anemia: (5) Lesion of liver: Plan 64-year-old male with h/o IPMN, hyperlipidemia, and 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. s/p right partial nephrectomy 12/02 with urology, Dr. Chao. Patient was discharged home 12/03 on Keflex and Percocet but were not taken - he was only home a few hours before coming back to [facility]. At home patient developed fever, chills, abd pain, and nausea. Patient returned to the ED and ther was concern for sepsis with white count of 20.21, HR 121, lactate 2.2. #concern for sepsis - SP partial right nephrectomy 12/02 for suspected malignancy - pathology pending AP CT showed right kidney appears mildly bulky in size with ill-defined hypo- hypoechoic areas in mid and lower pole region with mild cortical regularity and fluid collection (possibility of recent infection/recent intervention), postop free air changes noted blood/urine cx's thus far negative continue IV antibiotics with ciprofloxacin and Flagyl for now while awaiting cultures patient c/o dyspnea will obtain 2-view CXR - r/o developing pneumonia if pneumonia is seen would need broadening of his abx to cover hospital-acquired pathogens #anemia mild acute blood loss anemia from recent surgery Baseline Hgb 14.5, currently 10.7 Trend CBC #lesions of liver AP CT showed tiny hypodense lesions in both left and right lobe of liver total bili 1.2, otherwise LFTs WNL Follow-up with PCP and recommend ultrasound in outpatient setting #s/p right partial nephrectomy - 12/02 Appreciate urology consultation No surgical intervention needed at this time Await cultures #abdominal distension - could have mild ileus in setting of recent surgery will downgrade diet to full liquids re-eval tomorrow no stool since his surgery DVT proph - will ask urology if we can start heparin or similar tomorrow- at high risk of DVT due to recent surgery, concern for malignancy, etc PT eval to be requested Admission and Anticipated Discharge Date Admission Date: December 04, 2024 Subjective tele overnight - NSR or sinus tach c/o abdominal bloating, lack of appetite, weakness, no stools also feels mildly short of breath - not at rest, but noticed such w/ walking to bathroom today can't take deep breaths also with nasal congestion today and mild sore throat no vomiting Review of Systems Review of Systems: gen - chills, feverish, fatigue, weak, poor appetite cv - no chest pain pulm - scant to no cough - mild hematuria earlier today Physical Exam Physical Exam: gen - sitting in chair, looks weak but nontoxic, NAD otherwise mouth - MMM; mild posterior pharyngeal erythema neck - no JVD heart - mildly tachy, s1 s2, no murmur lungs - decreased BS bases with scant dry rales bases; otherwise CTA b/l abd - distended (moderate), BS+, incisional tenderness, multiple incisions c/d/i, no HSM ext - no edema, pulses 2+ b/l Results & Data Results & Data Vital Signs (Past 12 Hours) Vital Signs Temp Pulse Pulse Resp BP BP Pulse Ox 12/04/24 11:47 37.4 C 106 H 18 142/79 H 94 12/04/24 10:16 12/04/24 08:31 105 H 12/04/24 08:00 37.4 C 109 H 16 149/81 H 93 12/04/24 05:39 12/04/24 04:28 37.3 C 103 H 16 129/77 94 12/04/24 04:24 103 H 12/04/24 03:39 102 H 16 95 12/04/24 02:33 110 H 18 152/88 H 93 12/04/24 02:09 116 H 20 155/89 H 94 12/04/24 01:51 36.8 C 12/04/24 00:36 38.4 C H 121 H 22 94 O2 Del Method 12/04/24 11:47 Room Air 12/04/24 10:16 Room Air 12/04/24 08:31 12/04/24 08:00 Room Air 12/04/24 05:39 Room Air 12/04/24 04:28 Room Air 12/04/24 04:24 12/04/24 03:39 Room Air 12/04/24 02:33 Room Air 12/04/24 02:09 Room Air 12/04/24 01:51 12/04/24 00:36 Room Air Laboratory Results Laboratory Results - last 24 hr 12/04/24 07:57 WBC 18.42 H RBC 2.83 L Hgb 9.2 L Hct 26.7 L MCV 94.3 MCH 32.5 MCHC 34.5 RDW Std Deviation 41.6 RDW Coeff of Zeynep 12.0 Plt Count 154 MPV 11.1 Immature Gran % (Auto) 0.7 Neut % (Auto) 82.1 Lymph % (Auto) 8.1 [place] % (Auto) 8.5 Eos % (Auto) 0.4 Baso % (Auto) 0.2 Neut # (Auto) 15.12 H Lymph # (Auto) 1.49 [place] # (Auto) 1.56 H Eos # (Auto) 0.08 Baso # (Auto) 0.04 Immature Gran # (Auto) 0.13 Sodium 139 Potassium 3.6 Chloride 109 H Carbon Dioxide 27 Anion Gap 3 BUN 12 Creatinine 1.08 Est Cr Clr Drug Dosing 66.9 eGFR 76.63 BUN/Creatinine Ratio 11.1 Glucose 104 H Calcium 8.3 L Magnesium 1.8 PG Care Time/CCT Total # of Minutes Spent Total Time Spent with Patient: Total time spent is greater than 50% in coordination of care (as documented) at patient's floor/unit and/or counseling patient: Coding Level of Care Code 43711 SUB INP/OBS CARE 2/35MIN Diagnoses Sepsis A41.9 Sepsis acute organ dysfunction status: unspecified Sepsis type: sepsis due to unspecified organism H/O partial nephrectomy Z90.5 Fever postop R50.82 Anemia D64.9 Lesion of liver K76.9 (1) Sepsis Sepsis acute organ dysfunction status: unspecified Sepsis type: sepsis due to unspecified organism Qualified Code(s): A41.9 - Sepsis, unspecified organism
--- NOTE | 2024-12-04 13:28 | XRay Report ---
XR chest 2V PA/lateral CLINICAL HISTORY: b/l basilar rales, fever; ?pneumonia? COMPARISON STUDY: Chest radiograph December 03, 2024. FINDINGS: There is no pneumothorax. Trace bilateral pleural effusions are present. Subpleural opaciti es favor atelectasis. There is no consolidation to suggest pneumonia. Cardiomediastinal silhouette is unremarkable. Lung volumes are mildly diminished. Abdominal surgical clips are present. IMPRESSION: 1. Linear bibasilar densities suggestive of atelectasis. No consolidation to suggest pneumonia. 2. Trace bilateral pleural effusions. ACT 112: Negative or not required by law. Electronically signed by: Neel Darby M.D. 12/04/2024 1:27 PM
[2024-12-04] MEDS: CIPROFLOXACIN / D5W 400 MG/200 ML BAG IV SCH (14:20)
[2024-12-04] MEDS: POLYETHYLENE (MIRALAX) 17 GM PACK PO PRN (21:55)
[2024-12-05 08:27] LABS: BUN Creatinine Ratio 8.7 (10-20); Basophils # (auto) 0.03 K/uL (0.00-0.20); Basophils % (auto) 0.2 %; Calcium 8.3 mg/dl (8.6-10.3); Creatinine Clr Calc Pharmacy 69.4 ml/min; Eosinophils # (auto) 0.09 K/uL (0.00-0.50); Eosinophils % (auto) 0.6 %; Hematocrit (blood only) 25.3 % (42.0-52.0); Hemoglobin 8.7 g/dl (14.0-18.0); Immature Granulocytes % (auto) 0.7 %; Lymphocytes # (auto) 1.01 K/uL (1.20-3.40); Lymphocytes % (auto) 7.1 %; Mean Corpuscular Hemoglobin 32.3 pg (25.0-34.0); Mean Corpuscular Hgb Conc 34.4 g/dL (32.0-36.0); Mean Corpuscular Volume 94.1 fL (80.0-100.0); Monocytes % (auto) 7.8 %; Neutrophils # (auto) 11.81 K/uL (1.40-6.50); Neutrophils % (auto) 83.6 %; Platelet Count 144 K/uL (130-400); Potassium 3.4 mmol/L (3.5-5.1); RDW Standard Deviation 41.3 fL (36.4-46.3); Red Blood Count 2.69 M/uL (4.70-6.10); White Blood Count 14.14 K/ul (4.8-10.8)
--- NOTE | 2024-12-05 08:37 | Urology Progress Note ---
Date of Service December 05, 2024 Assessment & Plan (1) H/O partial nephrectomy: (2) Fever postop: Plan 64-year-old male with a history of a right renal mass who status post robotic laparoscopic right partial nephrectomy on 12/02/2024. He was discharged the following day after his drain and catheter were removed. Patient then reported fevers at home and came back into the emergency department. I suspect this is a combination of dehydration and atelectasis given his labs and his chest x-ray. Reviewed his CT scan which is expected given recent partial nephrectomy Despite reporting passing flatus, I think he is suffering from postoperative ileus based on his abdominal distention Although I do not suspect a true infection, not unreasonable to continue antibiotics while hospitalized Continue incentive spirometry and ambulation Regular diet No urologic intervention necessary Follow-up labs and cultures Suspect patient will require another 24 hours of observation given how he appeared on rounds today. I think he is at high risk for bounce back if discharged too soon as he initially came back to the hospital within 12 hours of being discharged. Appreciate medicine's assistance Urology to follow Admission and Anticipated Discharge Date Admission Date: December 04, 2024 Subjective No acute issues overnight. Patient is still mildly tachycardic intermittently. Labs show leukocytosis is further down trended to 14, hemoglobin is stable at 8.7 and creatinine is stable at 1.04. Urine culture is still pending. Patient reports overall feeling okay, however reports feeling fairly fatigued after having breakfast. Denies any nausea or vomiting. He is passing gas but is yet to have a bowel movement. Physical Exam Physical Exam: General: Alert and oriented, no acute distress HEENT: Normocephalic, mucous membranes moist Pulmonary: Nonlabored respirations Abdomen: Soft, moderately distended, appropriately tender. Incisions healing well. Extremities: Moves all 4 spontaneously Neuro: No gross deficits Skin: Warm, dry, no rashes noted Results & Data Vital Signs (Past 12 Hours) Vital Signs Temp Pulse Pulse Resp BP Pulse Ox O2 Del Method 12/05/24 07:47 37.5 C 109 H 18 146/80 H 94 Room Air 12/05/24 03:10 37.3 C 99 H 18 136/85 95 Room Air 12/05/24 03:04 36.8 C 104 H 16 104/64 94 Room Air 12/04/24 23:27 37.5 C 105 H 16 133/68 95 Room Air 12/04/24 21:42 111 H PG Care Time/CCT Total # of Minutes Spent Total Time Spent with Patient: Total time spent is greater than 50% in coordination of care (as documented) at patient's floor/unit and/or counseling patient: Coding Level of Care Code 17696 SUB INP/OBS CARE 2/35MIN Diagnoses H/O partial nephrectomy Z90.5 Fever postop R50.82
[2024-12-05] MEDS: POTASSIUM CHLORIDE CRTAB 20 MEQ TABCR PO STA ×2 (14:16→19:32)
--- NOTE | 2024-12-05 15:50 | XCELERA ---
[id number] \\[id number]
--- NOTE | 2024-12-05 20:28 | Hospitalist Progress Note ---
Date of Service December 05, 2024 Assessment & Plan (1) Sepsis: Plan: concern for at time of admission thus far no source of infection found - blood/urine cx's negative; resp biofire panel negative; cxr without discrete pneumonia stop flagyl- no indication for such cont cipro IV can likely go to PO cipro tomorrow fever at time of admission - 2nd to atelectasis? typically an ileus does not cause fever unless there is peritonitis, obstruction, or some other complication (2) H/O partial nephrectomy: Plan: right - 12/02/24 - by Dr Chao - [facility] [place] [facility] partial nephrectomy performed due to concern for RCC path pending (3) Fever postop: Plan: Tm 38.4 at [facility] on 12/04/24 none since see #1 above (4) Anemia: (5) Lesion of liver: Plan 64-year-old male with h/o IPMN, hyperlipidemia, and 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. s/p right partial nephrectomy 12/02 with urology, Dr. Chao. Patient was discharged home 12/03 on Keflex and Percocet but were not taken - he was only home a few hours before coming back to [facility]. At home patient developed fever, chills, abd pain, and nausea. Patient returned to the ED and ther was concern for sepsis with white count of 20.21, HR 121, lactate 2.2. #concern for sepsis - SP partial right nephrectomy 12/02 for suspected malignancy - pathology pending AP CT showed right kidney appears mildly bulky in size with ill-defined hypo- hypoechoic areas in mid and lower pole region with mild cortical regularity and fluid collection (possibility of recent infection/recent intervention), postop free air changes noted blood/urine cx's thus far negative continue IV antibiotics with ciprofloxacin but stop flagyl #anemia mild acute blood loss anemia from recent surgery Baseline Hgb 14.5, now 8.7 -- but no overt bleeding from any location Repeat CBC in am #lesions of liver AP CT showed tiny hypodense lesions in both left and right lobe of liver total bili 1.2, otherwise LFTs WNL Follow-up with PCP and recommend ultrasound in outpatient setting #s/p right partial nephrectomy - 12/02 Appreciate urology consultation No surgical intervention needed at this time Blood/urine cx's thus far negative #abdominal distension - likely ileus in setting of recent surgery cont restricted diet with full liquids starting to pass flatus but no stool yet continue to ambulate serial exams DVT proph - start heparin SC 5000 units BID PT eval requested, but patient is ambulating pretty decently on his own Admission and Anticipated Discharge Date Admission Date: December 04, 2024 Subjective tele - NSR or sinus tach patient feels some better than yesterday but still feels tired/weak/fatigued had dizziness with standing earlier this am -- orthostatic BPs negative tolerating full liquids still feels bloating in abdomen passing flatus no stools yet no vomiting improved dyspnea he has noted improvement in his numbers on his Tri-flow no cough walking independently in the halls Review of Systems Review of Systems: gen - no further fevers or chills cv - no chest pain pulm - improved dyspnea on exertion; no dyspnea at rest GI - bloating and mild incisional pain Physical Exam Physical Exam: gen - sitting in chair, looks better today overall mouth - MMM neck - no JVD heart - RRR, s1 s2, no murmur lungs - decreased BS bases but improved airation today; scant dry rales bases; otherwise CTA b/l abd - distended - unchanged from yesterday's exam, BS+, incisional tenderness, multiple incisions c/d with dominique intact, no HSM ext - no edema, pulses 2+ b/l Results & Data Results & Data Vital Signs (Past 12 Hours) Vital Signs Temp Pulse Resp BP Pulse Ox O2 Del Method 12/05/24 19:34 37.2 C 98 H 18 143/81 H 97 Room Air 12/05/24 15:42 37.4 C 108 H 20 132/77 91 Room Air 12/05/24 11:48 36.9 C Laboratory Results Laboratory Results - last 24 hr 12/05/24 07:44 WBC 14.14 H RBC 2.69 L Hgb 8.7 L Hct 25.3 L MCV 94.1 MCH 32.3 MCHC 34.4 RDW Std Deviation 41.3 RDW Coeff of Zeynep 12.0 Plt Count 144 MPV 11.0 Immature Gran % (Auto) 0.7 Neut % (Auto) 83.6 Lymph % (Auto) 7.1 [place] % (Auto) 7.8 Eos % (Auto) 0.6 Baso % (Auto) 0.2 Neut # (Auto) 11.81 H Lymph # (Auto) 1.01 L [place] # (Auto) 1.10 H Eos # (Auto) 0.09 Baso # (Auto) 0.03 Immature Gran # (Auto) 0.10 Sodium 138 Potassium 3.4 L Chloride 106 Carbon Dioxide 28 Anion Gap 4 BUN 9 Creatinine 1.04 Est Cr Clr Drug Dosing 69.4 eGFR 80.18 BUN/Creatinine Ratio 8.7 L Glucose 122 H Calcium 8.3 L Diagnostic Findings Microbiology 12/04/24 00:00 Urine,Clean Catch Urine Culture - Preliminary No growth - Less than 1,000 colonies/mL, Final report to follow. 12/03/24 23:37 Blood Aerobic Blood Culture - Preliminary No growth in Aerobic bottle after 24 hours. 12/03/24 23:37 Blood Anaerobic Blood Culture - Preliminary No growth in Anaerobic bottle after 24 hours. 12/03/24 23:50 Blood Aerobic Blood Culture - Preliminary No growth in Aerobic bottle after 24 hours. 12/03/24 23:50 Blood Anaerobic Blood Culture - Preliminary No growth in Anaerobic bottle after 24 hours. PG Care Time/CCT Total # of Minutes Spent Total Time Spent with Patient: Total time spent is greater than 50% in coordination of care (as documented) at patient's floor/unit and/or counseling patient: Coding Level of Care Code 34641 SUB INP/OBS CARE 2/35MIN Diagnoses Sepsis A41.9 Sepsis acute organ dysfunction status: unspecified Sepsis type: sepsis due to unspecified organism H/O partial nephrectomy Z90.5 Fever postop R50.82 Anemia D64.9 Lesion of liver K76.9 (1) Sepsis Sepsis acute organ dysfunction status: unspecified Sepsis type: sepsis due to unspecified organism Qualified Code(s): A41.9 - Sepsis, unspecified organism
[2024-12-05] MEDS: HEPARIN SOD 5,000 UNIT/0.5 ML VIAL SQ SCH (23:37)
[2024-12-06 08:21] LABS: Hematocrit (blood only) 25.6 % (42.0-52.0); Hemoglobin 8.8 g/dl (14.0-18.0); Mean Corpuscular Hemoglobin 32.5 pg (25.0-34.0); Mean Corpuscular Hgb Conc 34.4 g/dL (32.0-36.0); Mean Corpuscular Volume 94.5 fL (80.0-100.0); Platelet Count 185 K/uL (130-400); RDW Coefficient of Variation 12.1 % (11.5-14.5); RDW Standard Deviation 42.3 fL (36.4-46.3); Red Blood Count 2.71 M/uL (4.70-6.10); White Blood Count 15.25 K/ul (4.8-10.8)
[2024-12-06 08:53] LABS: BUN Creatinine Ratio 7.3 (10-20); Calcium 9.2 mg/dl (8.6-10.3); Creatinine Clr Calc Pharmacy 65.6 ml/min; Magnesium 1.9 mg/dl (1.7-2.4); Potassium 4.4 mmol/L (3.5-5.1)
--- NOTE | 2024-12-06 09:32 | Urology Progress Note ---
Date of Service December 06, 2024 Assessment & Plan (1) H/O partial nephrectomy: (2) Fever postop: Plan: 64-year-old male with a history of a right renal mass who status post robotic laparoscopic right partial nephrectomy on 12/02/2024. He was discharged the following day after his drain and catheter were removed. Patient then reported fevers at home and came back into the emergency department. Afebrile, hemodynamically stable Labs reviewedcreatinine 1.10, WBC 15.25, hemoglobin 8.8 Patient reports BMs overnight and subjectively feeling better today Urine and blood cultures negative No source of infection identified, can continue empiric antibiotics for now Continue incentive spirometry, flutter valve and ambulation Low fiber diet Incisions appropriate No urologic intervention necessary Pathology pending [facility]'s assistance Urology to follow Admission and Anticipated Discharge Date Admission Date: December 04, 2024 Subjective Patient seen and examined at bedside this morning. He is awake and sitting up in bedside chair. He reports 3 bowel movements since yesterday evening. Passing flatus. Generally feeling better. Some incisional discomfort. No fever or chills. He is ambulating in the hallway. He is using incentive spirometer and flutter valve. He is on low fiber diet. Review of Systems Constitutional: as per Subjective / HPI Genitourinary: + as per Subjective / HPI Physical Exam Constitutional: well developed and well nourished; no acute distress Respiratory: normal respiratory effort; no respiratory distress and no labored breathing Gastrointestinal (Abdomen): soft, mild distention, appropriately tender near incisions Musculoskeletal: Head/Neck/Chest: normocephalic Skin: incisions c/d with dominique Neurologic: moves all extremities and awake Psychiatric: Orientation: alert and oriented x 3 Results & Data Vital Signs (Past 12 Hours) Vital Signs Temp Pulse Pulse Resp BP Pulse Ox O2 Del Method 12/06/24 08:02 37.2 C 95 H 18 125/77 95 Room Air 12/06/24 03:40 37.5 C 99 H 16 117/80 93 Room Air 12/05/24 22:43 37.0 C 96 H 18 136/73 96 Room Air 12/05/24 21:46 104 H PG Care Time/CCT Total # of Minutes Spent Total Time Spent with Patient: Total time spent is greater than 50% in coordination of care (as documented) at patient's floor/unit and/or counseling patient: Coding Level of Care Code None Diagnoses H/O partial nephrectomy Z90.5 Fever postop R50.82
--- NOTE | 2024-12-06 13:43 | Electrocardiogram Report ---
Test Reason : Blood Pressure : */* mmHG Vent. Rate : 120 BPM Atrial Rate : 120 BPM P-R Int : 144 ms QRS Dur : 72 ms QT Int : 286 ms P-R-T Axes : 36 -1 -51 degrees QTcB Int : 404 ms Sinus tachycardia Abnormal ECG When compared with ECG of 02-Dec-2024 14:31, Premature ventricular complexes are no longer Present Confirmed by Chivo Hauser ([id number]) on 12/06/2024 1:42:50 PM Referred By: REFERRED SELF Confirmed By: Chivo Hauser
--- NOTE | 2024-12-06 13:54 | Electrocardiogram Report ---
Test Reason : Blood Pressure : */* mmHG Vent. Rate : 105 BPM Atrial Rate : 105 BPM P-R Int : 148 ms QRS Dur : 78 ms QT Int : 340 ms P-R-T Axes : 47 10 -9 degrees QTcB Int : 449 ms Sinus tachycardia with occasional Premature ventricular complexes T wave abnormality, consider anterior ischemia Abnormal ECG When compared with ECG of 03-Dec-2024 23:25, (unconfirmed) Premature ventricular complexes are now Present Confirmed by Chivo Hauser ([id number]) on 12/06/2024 1:54:33 PM Referred By: REFERRED SELF Confirmed By: Chivo Hauser
--- NOTE | 2024-12-06 14:35 | Hospitalist Progress Note ---
Date of Service December 06, 2024 Assessment & Plan (1) Sepsis: Plan: concern for at time of admission no infection found - blood/urine cx's negative; resp biofire panel negative; cxr without discrete pneumonia cont cipro IV today; change to PO cipro tomorrow will send home with empiric course of cipro (would complete 7 days in total of IV/PO) to cover the urinary tract just to be safe in light of persistent leukocytosis, etc. fever at time of admission - 2nd to atelectasis? typically an ileus does not cause fever unless there is peritonitis, obstruction, or some other complication - never had such complications (2) H/O partial nephrectomy: Plan: right - 12/02/24 - by Dr Chao - [facility] Urology partial nephrectomy performed due to concern for RCC path returned with RCC will defer to urology all management, discussions of such, etc. (3) Fever postop: Plan: Tm 38.4 at [facility] on 12/04/24 none since see #1 above (4) Anemia: Plan: 2nd acute blood loss (5) Lesion of liver: Plan 64-year-old male with h/o IPMN, hyperlipidemia, and 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. s/p right partial nephrectomy 12/02 with urology, Dr. Chao. Patient was discharged home 12/03 on Keflex and Percocet but were not taken - he was only home a few hours before coming back to [facility]. At home patient developed fever, chills, abd pain, and nausea. Patient returned to the ED and ther was concern for sepsis with white count of 20.21, HR 121, lactate 2.2. #concern for sepsis - SP partial right nephrectomy 12/02 for suspected malignancy - pathology pending AP CT showed right kidney appears mildly bulky in size with ill-defined hypo- hypoechoic areas in mid and lower pole region with mild cortical regularity and fluid collection (possibility of recent infection/recent intervention), postop free air changes noted blood/urine cx's negative #acute blood loss anemia - Baseline Hgb 14.5, now 8.8 -- but no overt bleeding from any location Repeat CBC in am Will need iron supplementation after discharge for 2-3 months Would not give IV iron this admission due to concern for infection #lesions of liver - AP CT showed tiny hypodense lesions in both left and right lobe of liver total bili 1.2, otherwise LFTs WNL Follow-up with PCP and recommend ultrasound in outpatient setting #s/p right partial nephrectomy - 12/02 - Appreciate urology consultation No repeat surgical intervention needed during this re-admission #abdominal distension - likely ileus in setting of recent surgery resolved - positive stools/positive flatus, distension improving albeit slowly allow low fiber diet #abnormal EKG with family h/o CAD - previous EKGs with no ST changes this admission, in the setting of acute blood loss anemia & suspected sepsis, he had diffuse T wave inversions in the anterior leads (and some mild ST segment changes III, AVF) today's EKG -- anterior T wave inversions resolved; mild J-point elevation I/AVL troponin earlier in the stay negative troponin today - again negative no ischemic symptoms during the stay I did discuss with him having outpatient stress test in the near-future in light of these dynamic changes & his family history would review his case with [facility] Cardiology before discharge to get their opinion if this is best approach #edema of legs - dopplers negative for DVT today edema 2nd to copious IV hydration khadar-operatively and during this admission DVT proph - heparin SC 5000 units BID passed PT eval ambulating independently should be able to d/c home on 12/07/24 Admission and Anticipated Discharge Date Admission Date: December 04, 2024 Subjective passing flatus & finally passed several stools overnight he feels better still bloated but not like previous days no nausea/emesis mild incisional tenderness only ambulating independently denies any dyspnea, [place], or chest pain does state his mother about age 70 dx with CAD and had stents another sibling possibly with CAD tele overnight - NSR or sinus tach Review of Systems Review of Systems: gen - no fevers or chills cv - no chest pain pulm - no cough, no dyspnea - voiding without LUTS Physical Exam Physical Exam: gen - sitting in chair, looks much better today mouth - MMM skin - generalized pallor neck - no JVD heart - RRR, s1 s2, no murmur lungs - decreased BS bases but airation continues to improve; no rales; no wheezing abd - distended - but improved from prior exams, BS+, incisional tenderness onl y, multiple incisions c/d with dominique intact, no HSM ext - 1+ edema b/l feet/ankles, pulses 2+ b/l Results & Data Results & Data Vital Signs (Past 12 Hours) Vital Signs Temp Pulse Pulse Resp BP Pulse Ox O2 Del Method 12/06/24 13:21 96 12/06/24 11:19 37.0 C 90 18 140/81 95 Room Air 12/06/24 08:02 37.2 C 95 H 18 125/77 95 Room Air 12/06/24 08:00 79 12/06/24 03:40 37.5 C 99 H 16 117/80 93 Room Air Laboratory Results Laboratory Results - last 24 hr 12/06/24 07:57 WBC 15.25 H RBC 2.71 L Hgb 8.8 L Hct 25.6 L MCV 94.5 MCH 32.5 MCHC 34.4 RDW Std Deviation 42.3 RDW Coeff of Zeynep 12.1 Plt Count 185 MPV 11.0 Sodium 139 Potassium 4.4 D Chloride 104 Carbon Dioxide 30 Anion Gap 5 BUN 8 Creatinine 1.10 Est Cr Clr Drug Dosing 65.6 eGFR 74.96 BUN/Creatinine Ratio 7.3 L Glucose 132 H Calcium 9.2 Magnesium 1.9 Diagnostic Findings echo - LV function intact, normal valve function, normal RV function, study was technically limited -- no mention of LV wall motion PG Care Time/CCT Total # of Minutes Spent Total Time Spent with Patient: Total time spent is greater than 50% in coordination of care (as documented) at patient's floor/unit and/or counseling patient: Coding Level of Care Code 71691 SUB INP/OBS CARE 3/50MIN Diagnoses Sepsis A41.9 Sepsis acute organ dysfunction status: unspecified Sepsis type: sepsis due to unspecified organism H/O partial nephrectomy Z90.5 Fever postop R50.82 Anemia D64.9 Lesion of liver K76.9 (1) Sepsis Sepsis acute organ dysfunction status: unspecified Sepsis type: sepsis due to unspecified organism Qualified Code(s): A41.9 - Sepsis, unspecified organism
--- NOTE | 2024-12-06 17:39 | Ultrasound Report ---
INDICATION: Leg swelling. COMPARISON: None available. TECHNIQUE: Multiple longitudinal and transverse sonographic images of the left and right lower extremity were obtained in conjunction with duplex Doppler sonography and serial compression through the left and right common femoral, superficial femoral, popliteal, and where possible visualized proximal calf veins. FINDINGS: The abovementioned veins demonstrate normal compressibility, flow and an appropriate augmentation response where possible. IMPRESSION: No evidence of deep venous thrombosis within the visualized bilateral lower extremities. Electronically signed by Antonio Dolan 12-06-2024 4:35 PM
[2024-12-07] MEDS: ACETAMINOPHEN 500 MG TAB PO PRN (00:07)
[2024-12-07] MEDS ORDERED: HYDROCODONE/ACETAMOPHEN 5/325MG TAB PO PRN (06:14)
[2024-12-07 08:00] LABS: Hemoglobin 8.5 g/dl (14.0-18.0); Mean Corpuscular Hemoglobin 32.2 pg (25.0-34.0); Mean Corpuscular Volume 94.7 fL (80.0-100.0); Mean Platelet Volume 10.5 fL (9.4-12.4); Platelet Count 216 K/uL (130-400); RDW Standard Deviation 41.7 fL (36.4-46.3); Red Blood Count 2.64 M/uL (4.70-6.10); White Blood Count 11.85 K/ul (4.8-10.8)
[2024-12-07 08:18] LABS: BUN Creatinine Ratio 9.8 (10-20); Calcium 8.8 mg/dl (8.6-10.3); Creatinine Clr Calc Pharmacy 64.5 ml/min
[2024-12-07] MEDS: CIPROFLOXACIN 500 MG TAB PO SCH (08:25)
[2024-12-07 10:51] VITALS: BP 129/78; PULSE 90; RESP 18; TEMP 98.6; O2SAT 96
--- NOTE | 2024-12-07 11:47 | Discharge Summary ---
Discharge Summary Date of Service December 07, 2024 Principal Dx & Hospital Course #1 = Principal Diagnosis (1) Sepsis: concern for at time of admission no infection found - blood/urine cx's negative; resp biofire panel negative; cxr without discrete pneumonia Treated while hospitalized with IV Cipro. He will resume his oral cephalexin at the time of discharge fever at time of admission - 2nd to atelectasis? typically an ileus does not cause fever unless there is peritonitis, obstruction, or some other complication - never had such complications (2) H/O partial nephrectomy: right - 12/02/24 - by Dr Chao - [facility] [place] Urology partial nephrectomy performed due to concern for RCC path returned with RCC will defer to urology all management, discussions of such, etc. (3) Fever postop: Tm 38.4 at [facility] on 12/04/24 none since see #1 above (4) Anemia: 2nd acute blood loss (5) Lesion of liver: Outpatient follow-up Plan Home today, December 07 Admission HPI Per Admitting Provider Patient is a 64-year-old male with a past medical history of IPMN hyperlipidemia and 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. Patient underwent right partial nephrectomy 12/02 with urology, Dr. Chao. Patient was discharged home 12/03 on Keflex and Percocet, in which she did not yet take. At home patient developed fever, chills, pain, and nausea. Patient returned to the ED and was found to be septic with a white count of 20.21, HR 121, lactate 2.2. He is being admitted for sepsis and to have urology evaluation. Patient seen at bedside with his present. He stated he went home and developed fever, chills, abdominal pain. He stated when he was here they did have difficulty removing his STU drain and he does not know if it is related to his current infection. He also endorses nausea at home however currently denies nausea. He had bone broth with rice for dinner but has had poor p.o. intake today. He also endorses dyspnea. He did not take any of his antibiotics at home yet. He denies any urinary symptoms, denies dysuria, difficulty urinating, hematuria. He denies any chest pain. He does not use nicotine products or drink alcohol. He denies any significant past medical history, he does not take any scheduled home medications, only some vitamins. He wishes to be full code. Patient stated he has had Alarcon-Alex reaction to amoxicillin and sulfa antibiotics. He also is allergic to ibuprofen. Discharge Exam General-alert and oriented x3, no fever, no chills HEENT-head atraumatic and normocephalic, pupils equal and reactive to light, extraocular muscles intact Neck-no lymphadenopathy or thyromegaly, trachea midline Chest-clear to auscultation. No rales, wheezing or rhonchi Cardiac-regular rate and rhythm, normal S1 and S2 Abdomen-normal bowel sounds, no hepatosplenomegaly Extremities-no cyanosis, clubbing, or edema Neuro-cranial nerves II through XII intact, motor and sensory function within normal limits, strength symmetrical, no focal deficits Psych-normal affect, normal mood Discharge Plan Discharge Items Patient Disposition: Home - Self-Care Reason For Visit: SEPSIS, POST-OP UTI Discharge Diagnosis: Postoperative fever, acute blood loss anemia, hypokalemia Activity: Resume your previous activity Non-emergency contact: Primary Care Provider and Urologist Call non-emergency contact if: your symptoms worsen Follow-up/Referrals: Kash Woods DO [Primary Care Provider] - Diet: Regular Addtl Attending Provider Instructions: All medications remain the same. Follow-up with urology as scheduled Pending Studies at Discharge: No Stand-Alone Forms: My [facility], Smoking Cessation Medications and DC Order Prescriptions: Continued cholecalciferol (vitamin D3) 50 mcg (2,000 unit) capsule 50 mcg PO DAILY cetirizine [Zyrtec] 10 mg tablet 10 mg PO DAILY vitamin E (dl, acetate) 180 mg (400 unit) capsule 180 mg PO DAILY vitamin B complex Capsule 1 cap PO DAILY oxycodone-acetaminophen [Percocet] 5-325 mg tablet 1 tab PO TID PRN (Reason: pain) Qty: 7 0RF cephalexin 500 mg capsule 500 mg PO BID 7 Days Qty: 14 0RF Discharge Orders: Discharge Order (Routine); Ordered 12/07/24 Ordered By: Bernardino Parish/Other Patient Handouts: Ferrous Sulfate Oral Tablet, Ciprofloxacin Oral Tablet, Acetaminophen Oral Tablet, Iron Supplements Admission Data Admit Date/Time: 12/04/24 02:59 Attending Provider: Bernardino Xiao Admit Provider: Reilly Vidal Primary Care Provider: Kash Woods Other Providers: Uriah Escobedo; Reilly Vidal Hospital Stay Data Consultations 12/04/24 02:18 Consult Urology Stat ED Decision to Admit Stat Diagnostic Imagining Performed 12/03/24 23:40 CT abd pelvis IV con only Stat 12/06/24 15:30 US venous doppler LE BI Urgent Pending Results Patient Have Any Pending Studies at Discharge: No Discharge Instructions Given to Patient (Per Discharging Provider) All medications remain the same. Follow-up with urology as scheduled Total Time Total Time Spent Total Time Spent (In Minutes): 45 minutes Coding Level of Care Code 04939 INP/OBS DISCH >30 MIN Diagnoses Sepsis A41.9 Sepsis acute organ dysfunction status: unspecified Sepsis type: sepsis due to unspecified organism H/O partial nephrectomy Z90.5 Fever postop R50.82 Anemia D64.9 Lesion of liver K76.9
--- NOTE | 2024-12-08 15:34 | Electrocardiogram Report ---
Test Reason : Blood Pressure : */* mmHG Vent. Rate : 95 BPM Atrial Rate : 95 BPM P-R Int : 140 ms QRS Dur : 84 ms QT Int : 348 ms P-R-T Axes : 48 4 -14 degrees QTcB Int : 437 ms Normal sinus rhythm Nonspecific T wave abnormality Abnormal ECG When compared with ECG of 04-Dec-2024 08:40, Premature ventricular complexes are no longer Present T wave abnormalities improved in Anterior leads Confirmed by Chivo Hauser ([id number]) on 12/08/2024 3:34:01 PM Referred By: REFERRED SELF Confirmed By: Chivo Hauser
== END 2024-12-07 13:27 | disposition home or self-care (01) | DRG 206 ==
LOC: ED 23:11 → SUATTDRO 12-04 02:59 → 2S 12-04 02:59